=== PATIENT | female | born 1960 | race Caucasian/White ===

== ENCOUNTER 2019-02-13 11:36 | Inpatient (IN) ==
[2019-02-13 13:10] LABS: CREATININE 5.28 mg/dL (0.55-1.02)
[2019-02-13 13:12] LABS: BASOPHILS % (AUTO) 0.1 % (0.2-1.0); EOSINOPHILS # (AUTO) 0.5 x10^3/uL (0.0-0.2); EOSINOPHILS % (AUTO) 3.2 % (0.9-2.9); HEMATOCRIT 26.6 % (36.0-47.0); HEMOGLOBIN 8.3 g/dL (12.0-16.0); LYMPHOCYTES # (AUTO) 2.1 X10^3/uL (1.3-2.9); LYMPHOCYTES % (AUTO) 14.7 % (21.0-51.0); MEAN CORPUSCULAR HEMOGLOBIN 22.6 pg (27.0-34.0); MEAN CORPUSCULAR VOLUME 72.7 fL (80.0-100.0); MEAN PLATELET VOLUME 9.7 fL (7.4-11.0); MONOCYTES # (AUTO) 1.5 x10^3/uL (0.3-0.8); MONOCYTES % (AUTO) 10.2 % (0.0-13.0); NEUTROPHILS # (AUTO) 10.4 x10^3/uL (2.2-4.8); NEUTROPHILS % (AUTO) 71.8 % (42.0-75.0); PLATELET COUNT 273 X10^3/uL (150.0-450.0); RED BLOOD COUNT 3.66 X10^6/uL (3.5-5.4); RED CELL DISTRIBUTION WIDTH 19.6 % (11.6-16.5); WHITE BLOOD COUNT 14.5 X10^3/uL (3.6-10.0)
[2019-02-13 13:14] LABS: ALBUMIN 2.2 g/dL (3.4-5.0); COR CA(FOR HYPOALB) 9.4 mg/dL (8.5-10.1); TOTAL PROTEIN 7.6 g/dL (6.4-8.2)
[2019-02-13 13:19] LABS: CARBON DIOXIDE 14.2 mmol/L (21-32)
[2019-02-13 13:21] LABS: BAND NEUTROPHILS % 4 % (0-10)
[2019-02-13 13:22] LABS: ANISOCYTOSIS SLIGHT; HYPOCHROMASIA 1+; MICROCYTOSIS SLIGHT; PLATELET MORPHOLOGY COMMENT NORMAL (NORMAL)
[2019-02-13] MEDS ORDERED: NS 1000 ML 1,000 ML ONE ×2 (13:52→17:49)
[2019-02-13] MEDS ORDERED: NS 1000 ML 1,000 ML IV ONE (13:58)
--- NOTE | 2019-02-13 14:02 | DR.EXTPAIN ---
HPI Time seen Time Seen by Provider: 02/13/19 13:42 PCP Primary Care Physician: SURI CHRISTY Complaint/Symptoms Chief Complaint:: PTS STATES PT HAS LOW BP AND PTS MD WANTED HER TO HAVE SOME FLUIDS. PTS BP IS 84/49 Source History Provided: Patient Mode of arrival Mode of Arrival: Ambulatory Timing Onset of Chief Complaint: 02/13/19 PMH PMH Past Medical History: Yes Past Medical History: Asthma, COPD, Diabetes and Hypertension Past Surgical History: Yes Surgical History: Appendectomy and Cholecystectomy Family History History of Family Medical Conditions: Yes Family Medical History: Diabetes Mellitus, Coronary Artery Disease and Hypertension Social History Does patient currently use any type of tobacco product: No Have you used tobacco products in the last 12 months: No Type of Tobacco Use: None Does any household member use tobacco: No Alcohol Use: None Do you use any recreational Drugs:: No Lives With: Spouse Lives Where: Home infectious screening In the last 2 months have you had wt loss of >10#?: NO Have you had fever, night sweats or hemotysis?: No Have you traveled outside the country in the last 6 months?: No Isolation: Standard PE Vital Signs Vitals: Temperature 96.8 F Pulse Rate 99 Respiratory Rate 18 Blood Pressure [Left Arm] 132/79 Blood Pressure 85/52 O2 Sat by Pulse Oximetry 100 ROR Labs Reviewed Result Diagrams: 02/13/19 12:45 02/13/19 12:45 Laboratory: WBC 14.5 X10^3/uL (3.6-10.0) H 02/13/19 12:45 RBC 3.66 X10^6/uL (3.5-5.4) 02/13/19 12:45 Hgb 8.3 g/dL (12.0-16.0) L 02/13/19 12:45 Hct 26.6 % (36.0-47.0) L 02/13/19 12:45 MCV 72.7 fL (80.0-100.0) L 02/13/19 12:45 MCH 22.6 pg (27.0-34.0) L 02/13/19 12:45 MCHC 31.0 g/dL (33.0-35.0) L 02/13/19 12:45 RDW 19.6 % (11.6-16.5) H 02/13/19 12:45 Plt Count 273 X10^3/uL (150.0-450.0) 02/13/19 12:45 Plt Count Comment Adequate (ADEQUATE) 02/13/19 12:45 MPV 9.7 fL (7.4-11.0) 02/13/19 12:45 Neut % (Auto) 71.8 % (42.0-75.0) 02/13/19 12:45 Lymph % (Auto) 14.7 % (21.0-51.0) L 02/13/19 12:45 Amelia % (Auto) 10.2 % (0.0-13.0) 02/13/19 12:45 Eos % (Auto) 3.2 % (0.9-2.9) H 02/13/19 12:45 Baso % (Auto) 0.1 % (0.2-1.0) L 02/13/19 12:45 Neut # (Auto) 10.4 x10^3/uL (2.2-4.8) H 02/13/19 12:45 Lymph # (Auto) 2.1 X10^3/uL (1.3-2.9) 02/13/19 12:45 Amelia # (Auto) 1.5 x10^3/uL (0.3-0.8) H 02/13/19 12:45 Eos # (Auto) 0.5 x10^3/uL (0.0-0.2) H 02/13/19 12:45 Baso # (Auto) 0.0 X10^3/uL (0.0-0.1) 02/13/19 12:45 Absolute Nucleated RBC 0.1 /100WBC 02/13/19 12:45 Total Counted 100 02/13/19 12:45 Neutrophils % (Manual) 72 % (39-76) 02/13/19 12:45 Band Neutrophils % 4 % (0-10) 02/13/19 12:45 Lymphocytes % (Manual) 13 % (13-43) 02/13/19 12:45 Monocytes % (Manual) 7 % (4-9) 02/13/19 12:45 Eosinophils % (Manual) 3 % (0-6) 02/13/19 12:45 Atypical Lymphocytes 1 02/13/19 12:45 Plt Morphology Comment Normal (NORMAL) 02/13/19 12:45 RBC Morphology Abnormal (NORMAL) A 02/13/19 12:45 Hypochromasia 1+ A 02/13/19 12:45 Anisocytosis Slight A 02/13/19 12:45 Microcytosis Slight A 02/13/19 12:45 Sodium 132 mmol/L (136-145) L 02/13/19 12:45 Corrected Sodium 134 mmol/L (136-145) L 02/13/19 12:45 Potassium 4.9 mmol/L (3.5-5.1) 02/13/19 12:45 Chloride 96 mmol/L (98-107) L 02/13/19 12:45 Carbon Dioxide 14.2 mmol/L (21-32) L* 02/13/19 12:45 BUN 101 mg/dL (7-18) H 02/13/19 12:45 Creatinine 5.28 mg/dL (0.55-1.02) H 02/13/19 12:45 Est GFR (MDRD) Af Amer 11 (>60) L 02/13/19 12:45 Est GFR (MDRD) Non-Af 9 (>60) L 02/13/19 12:45 Glucose 163 mg/dL (65-99) H 02/13/19 12:45 Lactic Acid 0.8 mmol/L (0.4-2.0) 02/13/19 14:30 Calcium 8.0 mg/dL (8.5-10.1) L 02/13/19 12:45 Corrected Calcium 9.4 mg/dL (8.5-10.1) 02/13/19 12:45 Total Bilirubin 0.20 mg/dL (0.2-1.0) 02/13/19 12:45 AST 24 Units/L (15-37) 02/13/19 12:45 ALT 26 Units/L (12-78) 02/13/19 12:45 Alkaline Phosphatase 332 Units/L (46-116) H 02/13/19 12:45 Creatine Kinase 47 Units/L (26-192) 02/13/19 12:45 CK-MB (CK-2) 1.4 ng/mL (0-4.0) 02/13/19 12:45 CK/CKMB % Calc 3.0 % (<4) 02/13/19 12:45 Troponin I < 0.02 ng/mL (0-1.5) 02/13/19 12:45 Total Protein 7.6 g/dL (6.4-8.2) 02/13/19 12:45 Albumin 2.2 g/dL (3.4-5.0) L 02/13/19 12:45 Globulin 5.4 g/dL (2.5-4.5) H 02/13/19 12:45 Albumin/Globulin Ratio 0.4 Ratio (1.1-2.1) L 02/13/19 12:45 Opioid Opioid Risk Tool Age (Ken box if 16-45): No History of Preadolescent Sexual Abuse: No Total: 0 Total Score Risk Category: Low Risk Copyright: [employer] predicting aberrant behaviors
[2019-02-13] MEDS ORDERED: ZOSYN VIAL 3.375 GRAMS 3.375 G in NS 100 ML IV + SPIKE MINIBAG* 100 ML IV ONE (14:46)
[2019-02-13] MEDS ORDERED: ZOSYN VIAL 3.375 GRAMS IV ONE (14:55)
[2019-02-13] MEDS ORDERED: NS 100 ML IV + SPIKE MINIBAG* 100 ML IV ONE (14:56)
--- NOTE | 2019-02-13 15:09 | CT ---
CT abdomen and pelvis without contrast Indication: Abdominal pain Technique: Helical images through the abdomen and pelvis without contrast. Coronal and sagittal reformats provided. Comparison: None available Findings: Limited images through the lower chest shows no acute abnormality. Few coronary artery calcifications are noted. Review of bone windows shows no destructive osseous lesion. Abdomen: The gallbladder is absent. The liver, spleen, pancreas, adrenal glands, stomach and small bowel show no acute abnormality. Aortic calcifications noted. Kidneys show no hydroureteronephrosis or obstructing stone. The left upper pole contour abnormality and subtle hypodensity could reflect renal lesion. Minimal perinephric stranding noted. Colonic diverticulosis is noted with moderate stool in the right colon. Appendix is absent. Pelvis: Urinary bladder and rectum are normal. Uterus and adnexal regions show no acute abnormality. Small umbilical hernia noted. Impression: 1. No acute abnormality to explain the patient's pain, within the limits of a noncontrast study 2. Vascular plaque, spine DJD, noninflamed colonic diverticula and other findings as above. Moderate constipation suggested. Recommend follow-up colonoscopy to exclude underlying lesion after resolution of acute symptoms, if not already recently performed 3. Vague left upper pole renal hypodensity and irregular contour is nonspecific, and evaluation is limited on this non-contrast study. Nevertheless to exclude underlying lesion, nonemergent outpatient ultrasound follow-up is recommended to exclude renal neoplasia. Reported By:
[2019-02-13 15:22] LABS: CREATINE KINASE 47 Units/L (26-192); CREATINE KINASE MB 1.4 ng/mL (0-4.0); TROPONIN I < 0.02 ng/mL (0-1.5)
[2019-02-13] MEDS: NS 1000 ML 1,000 ML IV SCH (17:50)
[2019-02-13] MEDS ORDERED: PROVENTIL NEB TX 0.083% 2.5MG/ 3ML NEB PRN (18:36)
[2019-02-13 18:47] VITALS: BMI 30.9
[2019-02-13] MEDS ORDERED: NS 250 ML IV 250 ML IV ONE (19:29)
[2019-02-13 19:47] LABS: BILIRUBIN,URINE NEGATIVE (NEGATIVE); BLOOD/HEMOGLOBIN,URINE 3+ (NEGATIVE); GLUCOSE, URINE NEGATIVE (NEGATIVE); KETONES,URINE NEGATIVE (NEGATIVE); LEUKOCYTE ESTERASE ,URINE 1+ (NEGATIVE); NITRITES,URINE NEGATIVE (NEGATIVE); PROTEIN,URINE 2+ (NEGATIVE); UROBILINOGEN,URINE NORMAL (NORMAL)
[2019-02-13 19:55] LABS: APPEARANCE,URINE CLEAR (CLEAR); COLOR,URINE YELLOW (YELLOW); SQUAMOUS EPITHELIAL CELL,UR FEW /HPF (NEGATIVE)
[2019-02-13 19:56] LABS: AMORPHOUS SEDIMENT,UR 1+ /HPF (NEGATIVE); BACTERIA,URINE NEGATIVE /HPF (NEGATIVE)
[2019-02-13] MEDS ORDERED: COLACE CAP 100 MG PO PRN (20:05)
[2019-02-13] MEDS: ZOSYN VIAL 3.375 GRAMS 3.375 G in NS 100 ML IV + SPIKE MINIBAG* 100 ML IV SCH (20:07)
[2019-02-13] MEDS: BROVANA IN SCH (20:48)
[2019-02-13] MEDS ORDERED: ZOFRAN INJ 4 MG VIAL IVP PRN (21:52)
[2019-02-13] MEDS ORDERED: MILK OF MAGNESIA PO PRN (21:52)
[2019-02-13] MEDS ORDERED: MIRALAX POWDER (1 DOSE 17 G) PO PRN (21:58)
[2019-02-13 23:18] LABS: CKMB % 3.1 % (<4); CREATINE KINASE 42 Units/L (26-192); CREATINE KINASE MB 1.3 ng/mL (0-4.0); TROPONIN I < 0.02 ng/mL (0-1.5)
[2019-02-14 01:01] LABS: BILIRUBIN,URINE NEGATIVE (NEGATIVE); BLOOD/HEMOGLOBIN,URINE 4+ (NEGATIVE); GLUCOSE, URINE NEGATIVE (NEGATIVE); KETONES,URINE NEGATIVE (NEGATIVE); LEUKOCYTE ESTERASE ,URINE 1+ (NEGATIVE); NITRITES,URINE NEGATIVE (NEGATIVE); PROTEIN,URINE 2+ (NEGATIVE); UROBILINOGEN,URINE NORMAL (NORMAL)
[2019-02-14 01:10] LABS: AMORPHOUS SEDIMENT,UR 2+ /HPF (NEGATIVE); APPEARANCE,URINE CLEAR (CLEAR); BACTERIA,URINE NEGATIVE /HPF (NEGATIVE); COLOR,URINE YELLOW (YELLOW); SQUAMOUS EPITHELIAL CELL,UR MODERATE /HPF (NEGATIVE)
[2019-02-14] MEDS: NS 1000 ML 1,000 ML IV SCH ×3 (01:29→19:25)
[2019-02-14 05:25] LABS: BASOPHILS # (AUTO) 0.1 X10^3/uL (0.0-0.1); BASOPHILS % (AUTO) 0.4 % (0.2-1.0); EOSINOPHILS # (AUTO) 0.3 x10^3/uL (0.0-0.2); EOSINOPHILS % (AUTO) 2.4 % (0.9-2.9); HEMATOCRIT 24.5 % (36.0-47.0); HEMOGLOBIN 7.4 g/dL (12.0-16.0); LYMPHOCYTES # (AUTO) 0.6 X10^3/uL (1.3-2.9); LYMPHOCYTES % (AUTO) 4.3 % (21.0-51.0); MEAN CORPUSCULAR HEMOGLOBIN 22.3 pg (27.0-34.0); MEAN CORPUSCULAR HGB CONC 30.2 g/dL (33.0-35.0); MEAN CORPUSCULAR VOLUME 73.7 fL (80.0-100.0); MEAN PLATELET VOLUME 9.1 fL (7.4-11.0); MONOCYTES % (AUTO) 7.5 % (0.0-13.0); NEUTROPHILS # (AUTO) 11.8 x10^3/uL (2.2-4.8); NEUTROPHILS % (AUTO) 85.4 % (42.0-75.0); PLATELET COUNT 247 X10^3/uL (150.0-450.0); RED BLOOD COUNT 3.32 X10^6/uL (3.5-5.4); RED CELL DISTRIBUTION WIDTH 19.2 % (11.6-16.5); WHITE BLOOD COUNT 13.9 X10^3/uL (3.6-10.0)
[2019-02-14 05:43] LABS: ALANINE AMINOTRANSFERASE 21 Units/L (12-78); ALBUMIN 1.9 g/dL (3.4-5.0); ALKALINE PHOSPHATASE 298 Units/L (46-116); ASPARTATE AMINO TRANSFERASE 21 Units/L (15-37); BLOOD UREA NITROGEN 101 mg/dL (7-18); CALCIUM 7.3 mg/dL (8.5-10.1); CHLORIDE 103 mmol/L (98-107); CKMB % 3.2 % (<4); COR NA(FOR HYPERGLY) 137 mmol/L (136-145); CREATINE KINASE 44 Units/L (26-192); CREATINE KINASE MB 1.4 ng/mL (0-4.0); CREATININE 4.98 mg/dL (0.55-1.02); HYPOCHROMASIA SLIGHT; PLATELET MORPHOLOGY COMMENT NORMAL (NORMAL); SODIUM 135 mmol/L (136-145); TOTAL PROTEIN 6.5 g/dL (6.4-8.2); TROPONIN I < 0.02 ng/mL (0-1.5); eGFR NON BLACK RACES 9 (>60)
[2019-02-14 05:53] LABS: CARBON DIOXIDE 8.2 mmol/L (21-32)
[2019-02-14] MEDS: BROVANA IN SCH ×2 (08:59→20:05)
[2019-02-14] MEDS: ZOSYN VIAL 3.375 GRAMS 3.375 G in NS 100 ML IV + SPIKE MINIBAG* 100 ML IV SCH ×2 (09:22→21:17)
--- NOTE | 2019-02-14 11:23 | RAD ---
HISTORY: Shortness of breath, diminished lung base sounds. Prior history of hypertension, diabetes, COPD and asthma. Prior surgical history of appendix, gallbladder. Study: Single-view chest, done portably. Comparison: No priors Findings: There are postsurgical changes present involving the right shoulder. Rotator cuff tendon repair anchors are present. The trachea is midline. Examination is slightly expiratory. There is cardiomegaly with pulmonary vascular congestion. No CHF, infiltrate, pleural fluid or pneumothorax is seen. Osseous structures are intact. There is multilevel thoracic spondylosis. IMPRESSION: Slightly expiratory exam with Cardiomegaly and mild pulmonary vascular congestion. No CHF, infiltrate or pleural fluid is seen. Reported By:
[2019-02-14] MEDS: HumuLIN R SUBCUT PRN (11:50)
[2019-02-14] MEDS ORDERED: NS 1000 ML 1,000 ML with SODIUM BICARBONATE 8.4% INJ ADULT 50 ML IV SCH ×2 (14:00)
[2019-02-14 14:03] LABS: ABG BASE EXCESS -19.6 mmol/L (-2.0-2.0)
[2019-02-14] MEDS: NORCO 5/325 MG TAB PO PRN ×2 (14:04→21:26)
[2019-02-14] MEDS: KAYEXALATE SUSP PO SCH ×2 (14:04→21:16)
[2019-02-14 14:05] LABS: ABG ALLEN TEST POS; ABG HCO3 6.9 mmol/L (22-26)
--- NOTE | 2019-02-14 16:32 | US ---
HISTORY: New onset of renal failure. Prior history of hypertension, diabetes, COPD and asthma. Study: Bilateral renal ultrasound Comparison: CT scan of the abdomen and pelvis done 02/13/2019. Technique: Grayscale, duplex and color Doppler ultrasound evaluation of the kidneys is provided. Findings: A Richard catheter is present in the urinary bladder is decompressed and not evaluated. Both kidneys display normal corticomedullary echo differentiation, color and duplex Doppler flow. No evidence of solid renal mass, stone or hydronephrosis is seen. There is no evidence of perinephric fluid. Right kidney measures 6.36 x 7.22 x 10.7 cm. Cortical thickness is 2.34 cm. Left kidney measures 5.13 x 5.78 x 9.39 cm. Cortical thickness is 1.62 cm. There is a very subtle cortical cyst present on the left in the midpole region. This measures about 1.34 cm in diameter. IMPRESSION: Normal corticomedullary echo differentiation and Doppler flow to both kidneys. No evidence of solid renal mass, stone or hydronephrosis. Very subtle 1.34 cm simple cyst in the midpole of the left kidney. Urinary bladder not evaluated as a Richard catheter is present and the urinary bladder is decompressed. Reported By:
[2019-02-14 17:51] LABS: CALCIUM 7.7 mg/dL (8.5-10.1); CREATININE 4.78 mg/dL (0.55-1.02)
[2019-02-14 17:53] LABS: CARBON DIOXIDE 11.8 mmol/L (21-32)
[2019-02-14] MEDS ORDERED: NS 1000 ML 1,000 ML IV ONE (18:02)
--- NOTE | 2019-02-14 18:14 | DR.H&P ---
H&P - History & Physical for Day of: H&P Date: 02/13/19 - Chief Complaint Chief Complaint: weakness, low bp, uti - History of Present Illness History of Present Illness: PT IS 58 WF ER ADMISSION AFTER PRESENTING WITH CO RECENT UTI AND CO LOW BP AND WEAKNESS. PT SPOUSE STATES HER MD WANTED HER TO COME TO ER TO GET FLUIDS. PT HAS PMH OF DM, DENIES ANY HX OF RENAL DISEASE OR CAD. PT WAS HYPOTENSIVE IN ER, BUN 101, CREAT 5.25, WBC 14.5. PT WAS ADMITTED FROM ER WITH DC UROSEPSIS. - Past Medical History Past Medical History: Hypertension, Diabetes, COPD, Asthma - Past Surgical History Surgical History: Appendectomy, Cholecystectomy, Ortho Surgery - Family History Family Medical History: Diabetes Mellitus, Coronary Artery Disease, Hypertension - Social History Does patient currently use any type of tobacco product: No Have you used tobacco products in the last 12 months: No Type of Tobacco Use: None Does any household member use tobacco: No Alcohol Use: None Drug Use: None - Medications Home Medications: No Known Drug Allergies Allergy (Verified 02/10/19 08:19) CONTINUE taking the following medications gemfibrozil 600 mg PO DAILY 02/14/19 [History] glimepiride 4 mg PO BID 02/14/19 [History] hydrocodone-acetaminophen 1 tab PO DAILY PRN 02/14/19 [History] ibuprofen 800 mg PO BID 02/14/19 [History] metformin 1,000 mg PO BID 02/14/19 [History] metoprolol tartrate 25 mg PO DAILY 02/14/19 [History] simvastatin 40 mg PO DAILY 02/14/19 [History] valsartan 80 mg PO DAILY 02/14/19 [History] - Review of Systems Constitutional: Weakness Eyes: No Symptoms Reported Respiratory: No Symptoms Reported Cardiovascular: Edema (MILD LOWER EXTREMITY EDEMA) Gastrointestinal: No Symptoms Reported Genitourinary: No Symptoms Reported Musculoskeletal: Back Pain Skin: No Symptoms Reported Neurological: No Symptoms Reported - Physical Exam Vital Signs: Temperature 99.2 F Pulse Rate 112 Respiratory Rate 29 Blood Pressure [Left Arm] 85/52 Blood Pressure 116/56 O2 Sat by Pulse Oximetry 100 Oriented: Normal Eyes: Normal Ear: Normal Nose: Normal Throat: Normal Respiratory: RLL Diminished, LLL Diminished Cardiovascular: Normal : Normal Auscultation: Bowel Sounds: Normal Palpation: Normal Tenderness: Normal Skin: Normal Musculoskeletal: Back:Thoracic, Back:Lumbar Psychiatric: Normal Mood Description: Calm Speech Pattern: Clear, Appropriate - Assessment/Plan (1) Acute renal failure Status: Acute Plan: ADMIT, IV HYDRATION, LITER NS BOLUS GIVEN IN ER. MILLER CATH ON ADMISSION, REPEAT UA AND UC. BLOOD CULTURES ON ADMISSION, LACTIC ACID. IV ATBX THERAPY, STRICT I & OS. VERIFY HOME MEDICATION, BS CONTROL, EKG MONITORING (2) Hypotension Status: Acute (3) Diabetes 1.5, managed as type 2 Status: Acute (4) Sepsis associated hypotension Status: Acute (5) UTI (urinary tract infection) Qualifiers: Urinary tract infection type: site unspecified Hematuria presence: with hematuria Qualified Code(s): N39.0 - Urinary tract infection, site not specified; R31.9 - Hematuria, unspecified Status: Acute - Allergies Allergies/Adverse Reactions: Allergies Allergy/AdvReac Type Severity Reaction Status Date / Time No Known Drug Allergies Allergy Verified 02/10/19 08:19
--- NOTE | 2019-02-14 18:20 | PCM.PROG ---
Progress Note - Progress Note for Day of Date of Exam: 02/14/19 - Subjective Subjective: PT IS 58 WF ER ADMISSION DURING THE NIGHT LAST NIGHT WITH DX OF UROSEPSIS, ACUTE RENAL FAILURE, DEHYDRATION, UTI. PT HAS BEEN ON IV HYDRATION WITH IMPROVED BP THIS AM ~100/60, NO TACHYPNEA OR TACHYCARDIA. PT DENIES ANY CARDIAC HISTORY OR RENAL DISEASE. PT HAD CT SCAN OF ABD/PELVIS IN ER WITHOUT CONTRAST. RENAL US ORDERED TODAY DUE TO RENAL INSUFFICEINCY. CXR, ABG, REPEAT BMP. AND REPEAT LACTIC ACID AND SERUM ACETONE. PT DID HAVE ~300CC LIGHT YELLOW URINE OUTPUT IN MILLER BAG. HOURLY URINE OUTPT ORDERED. WILL REPEAT AM CXR. - Past Medical Family Social History Past Med/Fam/Surg Hx: No changes since H&P Allergies: Allergies No Known Drug Allergies Allergy (Verified 02/10/19 08:19) - Review of Systems ROS: No change since H&P - Vital Signs and I&O's Vital Signs: Temperature 99.2 F Pulse Rate 112 Respiratory Rate 29 Blood Pressure [Left Arm] 85/52 Blood Pressure 116/56 O2 Sat by Pulse Oximetry 100 Intake and Output: Intake & Output 02/12/19 02/13/19 02/14/19 02/15/19 11:59 11:59 11:59 11:59 Intake Total 1900 / 1900 Output Total 450 / 450 Balance 1450 / 1450 - Physical Exam Oriented: Normal Eyes: Normal Ear: Normal Nose: Normal Throat: Normal Respiratory: Diminished Cardiovascular: Normal : Normal Auscultation: Bowel Sounds: Normal Tenderness: Normal Skin: Normal Musculoskeletal: Back:Thoracic, Back:Lumbar Psychiatric: Normal Mood Description: Calm Speech Pattern: Clear, Appropriate - Laboratory and Diagnostics Result Diagrams: 02/14/19 04:52 02/14/19 17:35 Labs: Laboratory WBC 13.9 X10^3/uL (3.6-10.0) H 02/14/19 04:52 RBC 3.32 X10^6/uL (3.5-5.4) L 02/14/19 04:52 Hgb 7.4 g/dL (12.0-16.0) L 02/14/19 04:52 Hct 24.5 % (36.0-47.0) L 02/14/19 04:52 MCV 73.7 fL (80.0-100.0) L 02/14/19 04:52 MCH 22.3 pg (27.0-34.0) L 02/14/19 04:52 MCHC 30.2 g/dL (33.0-35.0) L 02/14/19 04:52 RDW 19.2 % (11.6-16.5) H 02/14/19 04:52 Plt Count 247 X10^3/uL (150.0-450.0) 02/14/19 04:52 Plt Count Comment Adequate (ADEQUATE) 02/14/19 04:52 MPV 9.1 fL (7.4-11.0) 02/14/19 04:52 Neut % (Auto) 85.4 % (42.0-75.0) H 02/14/19 04:52 Lymph % (Auto) 4.3 % (21.0-51.0) L 02/14/19 04:52 Green % (Auto) 7.5 % (0.0-13.0) 02/14/19 04:52 Eos % (Auto) 2.4 % (0.9-2.9) 02/14/19 04:52 Baso % (Auto) 0.4 % (0.2-1.0) 02/14/19 04:52 Neut # (Auto) 11.8 x10^3/uL (2.2-4.8) H 02/14/19 04:52 Lymph # (Auto) 0.6 X10^3/uL (1.3-2.9) L 02/14/19 04:52 Green # (Auto) 1.0 x10^3/uL (0.3-0.8) H 02/14/19 04:52 Eos # (Auto) 0.3 x10^3/uL (0.0-0.2) H 02/14/19 04:52 Baso # (Auto) 0.1 X10^3/uL (0.0-0.1) 02/14/19 04:52 Absolute Nucleated RBC 0.1 /100WBC 02/14/19 04:52 Total Counted 100 02/13/19 12:45 Neutrophils % (Manual) 72 % (39-76) 02/13/19 12:45 Band Neutrophils % 4 % (0-10) 02/13/19 12:45 Lymphocytes % (Manual) 13 % (13-43) 02/13/19 12:45 Monocytes % (Manual) 7 % (4-9) 02/13/19 12:45 Eosinophils % (Manual) 3 % (0-6) 02/13/19 12:45 Atypical Lymphocytes 1 02/13/19 12:45 Plt Morphology Comment Normal (NORMAL) 02/14/19 04:52 RBC Morphology Abnormal (NORMAL) A 02/14/19 04:52 Hypochromasia Slight A 02/14/19 04:52 Anisocytosis Slight A 02/13/19 12:45 Microcytosis Slight A 02/13/19 12:45 Sample Site Rr 02/14/19 13:57 ABG pH 7.170 (7.35-7.45) L* 02/14/19 13:57 ABG pCO2 19.0 mmHg (35.0-45.0) L* 02/14/19 13:57 ABG pO2 96.0 mmHg (80.0-100.0) 02/14/19 13:57 ABG HCO3 6.9 mmol/L (22-26) L* 02/14/19 13:57 ABG O2 Saturation 95.0 % (90-100) 02/14/19 13:57 ABG Base Excess -19.6 mmol/L (-2.0-2.0) L 02/14/19 13:57 Armando Test Pos 02/14/19 13:57 A-a Gradient 30.0 mmHg 02/14/19 13:57 FiO2 21.0 02/14/19 13:57 Blood Gas Comments Pt juan c well. cdn 02/14/19 13:57 Sodium 138 mmol/L (136-145) 02/14/19 17:35 Corrected Sodium 139 mmol/L (136-145) 02/14/19 17:35 Potassium 4.7 mmol/L (3.5-5.1) 02/14/19 17:35 Chloride 106 mmol/L (98-107) 02/14/19 17:35 Carbon Dioxide 11.8 mmol/L (21-32) L* 02/14/19 17:35 BUN 100 mg/dL (7-18) H 02/14/19 17:35 Creatinine 4.78 mg/dL (0.55-1.02) H 02/14/19 17:35 Est GFR (MDRD) Af Amer 12 (>60) L 02/14/19 17:35 Est GFR (MDRD) Non-Af 10 (>60) L 02/14/19 17:35 Glucose 145 mg/dL (65-99) H 02/14/19 17:35 POC Glucose (mg/dL) 135 mg/dL (65-99) H 02/14/19 16:27 Hemoglobin A1c 10.3 % 02/14/19 04:52 Lactic Acid 0.8 mmol/L (0.4-2.0) 02/13/19 14:30 Calcium 7.7 mg/dL (8.5-10.1) L 02/14/19 17:35 Corrected Calcium 9.0 mg/dL (8.5-10.1) 02/14/19 04:52 Magnesium 2.0 mg/dL (1.7-2.9) 02/14/19 04:52 Iron 24 ug/dL (50-175) L 02/14/19 13:30 Transferrin 219 mg/dL (202-364) 02/14/19 13:30 Ferritin 20 ng/mL (8-252) 02/14/19 13:30 Total Bilirubin 0.20 mg/dL (0.2-1.0) 02/14/19 04:52 AST 21 Units/L (15-37) 02/14/19 04:52 ALT 21 Units/L (12-78) 02/14/19 04:52 Alkaline Phosphatase 298 Units/L (46-116) H 02/14/19 04:52 Creatine Kinase 44 Units/L (26-192) 02/14/19 04:52 CK-MB (CK-2) 1.4 ng/mL (0-4.0) 02/14/19 04:52 CK/CKMB % Calc 3.2 % (<4) 02/14/19 04:52 Troponin I < 0.02 ng/mL (0-1.5) 02/14/19 04:52 Total Protein 6.5 g/dL (6.4-8.2) 02/14/19 04:52 Albumin 1.9 g/dL (3.4-5.0) L 02/14/19 04:52 Globulin 4.6 g/dL (2.5-4.5) H 02/14/19 04:52 Albumin/Globulin Ratio 0.4 Ratio (1.1-2.1) L 02/14/19 04:52 Vitamin B12 775 pg/mL (193-986) 02/14/19 13:30 Folate 19.1 ng/mL (>8.6) 02/14/19 13:30 Specimen Type Catherized urine 02/14/19 00:40 Urine Color Yellow (YELLOW) 02/14/19 00:40 Urine Appearance Clear (CLEAR) 02/14/19 00:40 Urine pH 5.0 (5.0 - 8.0) 02/14/19 00:40 Ur Specific [place] 1.015 (1.000-1.030) 02/14/19 00:40 Urine Protein 2+ (NEGATIVE) 02/14/19 00:40 Urine Glucose (UA) Negative (NEGATIVE) 02/14/19 00:40 Urine Ketones Negative (NEGATIVE) 02/14/19 00:40 Urine Occult Blood 4+ (NEGATIVE) 02/14/19 00:40 Urine Nitrite Negative (NEGATIVE) 02/14/19 00:40 Urine Bilirubin Negative (NEGATIVE) 02/14/19 00:40 Urine Urobilinogen Normal (NORMAL) 02/14/19 00:40 Ur Leukocyte Esterase 1+ (NEGATIVE) 02/14/19 00:40 Urine RBC 5-10 /HPF (0-3) A 02/14/19 00:40 Urine WBC 3-5 /HPF (0-5) 02/14/19 00:40 Ur Squamous Epith Cells Moderate /HPF (NEGATIVE) 02/14/19 00:40 Amorphous Sediment 2+ /HPF (NEGATIVE) 02/14/19 00:40 Urine Bacteria Negative /HPF (NEGATIVE) 02/14/19 00:40 Ur Culture Indicated? No/not indicated 02/14/19 00:40 - Plan (1) Acute renal failure Status: Acute Plan: IV HYDRATION, LITER NS BOLUS GIVEN IN ER. MILLER CATH ON ADMISSION, REPEAT UA AND UC. BLOOD CULTURES ON ADMISSION, LACTIC ACID. IV ATBX THERAPY, STRICT I & OS. VERIFY HOME MEDICATION, BS CONTROL, EKG MONITORING (2) Hypotension Status: Acute (3) Diabetes 1.5, managed as type 2 Status: Acute (4) Sepsis associated hypotension Status: Acute (5) UTI (urinary tract infection) Status: Acute Qualifiers: Urinary tract infection type: site unspecified Hematuria presence: with hematuria Qualified Code(s): N39.0 - Urinary tract infection, site not specified; R31.9 - Hematuria, unspecified (6) Acidosis, metabolic Status: Acute Plan: IV HYDRATION, SERIAL BMP. REPEAT LACTIC ACID, ABG. SERUM ACETONE, BS CONTROL, TREATMENT OF ACUTE RENAL FAILURE
[2019-02-14 18:37] LABS: LACTIC ACID 0.7 mmol/L (0.4-2.0)
[2019-02-14 18:51] LABS: SERUM ACETONE NEGATIVE (NEGATIVE)
[2019-02-14] MEDS: SNACK - Diabetic Appropriate PO SCH (20:43)
[2019-02-14 21:53] LABS: CALCIUM 7.6 mg/dL (8.5-10.1); CREATININE 4.52 mg/dL (0.55-1.02)
[2019-02-14 21:56] LABS: CARBON DIOXIDE 9.3 mmol/L (21-32)
[2019-02-15 02:00] LABS: CALCIUM 7.5 mg/dL (8.5-10.1); CREATININE 4.32 mg/dL (0.55-1.02)
[2019-02-15 02:03] LABS: CARBON DIOXIDE 9.4 mmol/L (21-32)
[2019-02-15] MEDS: NS 1000 ML 1,000 ML IV SCH ×3 (05:38→22:51)
[2019-02-15 05:54] LABS: BASOPHILS % (AUTO) 0.3 % (0.2-1.0); EOSINOPHILS # (AUTO) 0.5 x10^3/uL (0.0-0.2); EOSINOPHILS % (AUTO) 3.1 % (0.9-2.9); HEMATOCRIT 25.7 % (36.0-47.0); HEMOGLOBIN 7.9 g/dL (12.0-16.0); LYMPHOCYTES # (AUTO) 1.2 X10^3/uL (1.3-2.9); LYMPHOCYTES % (AUTO) 8.4 % (21.0-51.0); MEAN CORPUSCULAR HEMOGLOBIN 22.6 pg (27.0-34.0); MEAN CORPUSCULAR HGB CONC 30.8 g/dL (33.0-35.0); MEAN CORPUSCULAR VOLUME 73.2 fL (80.0-100.0); MEAN PLATELET VOLUME 8.8 fL (7.4-11.0); MONOCYTES # (AUTO) 1.1 x10^3/uL (0.3-0.8); MONOCYTES % (AUTO) 7.2 % (0.0-13.0); PLATELET COUNT 323 X10^3/uL (150.0-450.0); RED CELL DISTRIBUTION WIDTH 19.3 % (11.6-16.5); WHITE BLOOD COUNT 14.8 X10^3/uL (3.6-10.0)
[2019-02-15 06:00] LABS: CALCIUM 7.9 mg/dL (8.5-10.1); COR CA(FOR HYPOALB) 9.5 mg/dL (8.5-10.1); CREATININE 4.22 mg/dL (0.55-1.02)
[2019-02-15 06:02] LABS: CARBON DIOXIDE 9.9 mmol/L (21-32)
[2019-02-15 06:08] LABS: HYPOCHROMASIA 1+; PLATELET MORPHOLOGY COMMENT NORMAL (NORMAL)
[2019-02-15 08:56] LABS: ABG BASE EXCESS -18.6 mmol/L (-2.0-2.0)
[2019-02-15 08:58] LABS: ABG ALLEN TEST POS; ABG HCO3 7.6 mmol/L (22-26)
[2019-02-15] MEDS: ZOSYN VIAL 3.375 GRAMS 3.375 G in NS 100 ML IV + SPIKE MINIBAG* 100 ML IV SCH ×2 (09:01→21:35)
[2019-02-15] MEDS: BROVANA IN SCH ×2 (10:03→20:37)
[2019-02-15 10:24] LABS: CALCIUM 7.9 mg/dL (8.5-10.1); CREATININE 4.11 mg/dL (0.55-1.02)
--- NOTE | 2019-02-15 10:56 | RAD ---
HISTORY: Shortness of breath Study: Chest AP portable Comparison: 02/14/2019 Findings: The heart is mildly enlarged. No congestive heart failure is noted. No acute alveolar infiltrates or pleural effusions are identified. Mild hypo inflation is present. The bony thorax is unremarkable. IMPRESSION: Mild cardiomegaly without congestive heart failure Lungs mildly hypo inflated but clear Reported By:
[2019-02-15] MEDS: NORCO 5/325 MG TAB PO PRN ×2 (12:39→19:40)
--- NOTE | 2019-02-15 12:58 | PCM.PROG ---
Progress Note - Progress Note for Day of Date of Exam: 02/15/19 - Subjective Subjective: PT IS 58 WF ER ADMISSION DURING THE NIGHT LAST NIGHT WITH DX OF UROSEPSIS, ACUTE RENAL FAILURE, DEHYDRATION, UTI. PT HAS BEEN ON IV HYDRATION WITH IMPROVED BP THIS AM 117/59, NO TACHYPNEA OR TACHYCARDIA THIS MORNING. PT DENIES ANY CARDIAC HISTORY OR RENAL DISEASE. PT REPORTS SHE HAD NOT HAD LABS IN YEARS.RENAL US WITH NORMAL BILATERAL RENAL PERFUSION. CXR, ABG, REPEAT BMP. AND REPEAT LACTIC ACID. CO2 UP TO 11 ON CMP. PT DID HAVE LIGHT YELLOW URINE OUTPUT IN MILLER BAG, OUTPUT THIS AM 3620CC. PT HAS HAD CO DYSPHAGIA, CHOKING WHILE EATING OR FOOD GETTING STUCK IN HER THROAT. DR GONZALEZ CONSULTED WITH PLANS FOR EGD THIS AM, PT IS NPO. - Past Medical Family Social History Past Med/Fam/Surg Hx: No changes since H&P Allergies: Allergies No Known Drug Allergies Allergy (Verified 02/10/19 08:19) - Review of Systems ROS: No change since H&P - Vital Signs and I&O's Vital Signs: Temperature 98.8 F Pulse Rate 109 Respiratory Rate 22 Blood Pressure [Left Arm] 85/52 Blood Pressure 114/58 O2 Sat by Pulse Oximetry 100 Intake and Output: Intake & Output 02/13/19 02/14/19 02/15/19 02/16/19 11:59 11:59 11:59 11:59 Intake Total 1900 / 1900 4819 / 4819 Output Total 450 / 450 3620 / 3620 Balance 1450 / 1450 1199 / 1199 - Physical Exam Oriented: Normal Eyes: Normal Ear: Normal Nose: Normal Throat: Normal Respiratory: Diminished Cardiovascular: Normal : Normal Auscultation: Bowel Sounds: Normal Tenderness: Normal Skin: Normal Musculoskeletal: Back:Thoracic, Back:Lumbar Psychiatric: Normal Mood Description: Calm Speech Pattern: Clear, Appropriate - Laboratory and Diagnostics Result Diagrams: 02/15/19 05:35 02/15/19 10:07 Labs: 02/13/19 14:30 Blood Blood Culture - Preliminary 02/13/19 14:20 Blood Blood Culture - Preliminary 02/14/19 09:40 Urine,[place] Urine Culture - Preliminary Laboratory WBC 14.8 X10^3/uL (3.6-10.0) H 02/15/19 05:35 RBC 3.50 X10^6/uL (3.5-5.4) 02/15/19 05:35 Hgb 7.9 g/dL (12.0-16.0) L 02/15/19 05:35 Hct 25.7 % (36.0-47.0) L 02/15/19 05:35 MCV 73.2 fL (80.0-100.0) L 02/15/19 05:35 MCH 22.6 pg (27.0-34.0) L 02/15/19 05:35 MCHC 30.8 g/dL (33.0-35.0) L 02/15/19 05:35 RDW 19.3 % (11.6-16.5) H 02/15/19 05:35 Plt Count 323 X10^3/uL (150.0-450.0) 02/15/19 05:35 Plt Count Comment Adequate (ADEQUATE) 02/15/19 05:35 MPV 8.8 fL (7.4-11.0) 02/15/19 05:35 Neut % (Auto) 81.0 % (42.0-75.0) H 02/15/19 05:35 Lymph % (Auto) 8.4 % (21.0-51.0) L 02/15/19 05:35 [place] % (Auto) 7.2 % (0.0-13.0) 02/15/19 05:35 Eos % (Auto) 3.1 % (0.9-2.9) H 02/15/19 05:35 Baso % (Auto) 0.3 % (0.2-1.0) 02/15/19 05:35 Neut # (Auto) 12.0 x10^3/uL (2.2-4.8) H 02/15/19 05:35 Lymph # (Auto) 1.2 X10^3/uL (1.3-2.9) L 02/15/19 05:35 [place] # (Auto) 1.1 x10^3/uL (0.3-0.8) H 02/15/19 05:35 Eos # (Auto) 0.5 x10^3/uL (0.0-0.2) H 02/15/19 05:35 Baso # (Auto) 0.0 X10^3/uL (0.0-0.1) 02/15/19 05:35 Absolute Nucleated RBC 0.0 /100WBC 02/15/19 05:35 Total Counted 100 02/13/19 12:45 Neutrophils % (Manual) 72 % (39-76) 02/13/19 12:45 Band Neutrophils % 4 % (0-10) 02/13/19 12:45 Lymphocytes % (Manual) 13 % (13-43) 02/13/19 12:45 Monocytes % (Manual) 7 % (4-9) 02/13/19 12:45 Eosinophils % (Manual) 3 % (0-6) 02/13/19 12:45 Atypical Lymphocytes 1 02/13/19 12:45 Plt Morphology Comment Normal (NORMAL) 02/15/19 05:35 RBC Morphology Abnormal (NORMAL) A 02/15/19 05:35 Hypochromasia 1+ A 02/15/19 05:35 Anisocytosis Slight A 02/13/19 12:45 Microcytosis Slight A 02/13/19 12:45 Sample Site Rra 02/15/19 08:54 ABG pH 7.190 (7.35-7.45) L* 02/15/19 08:54 ABG pCO2 20.0 mmHg (35.0-45.0) L 02/15/19 08:54 ABG pO2 98.0 mmHg (80.0-100.0) 02/15/19 08:54 ABG HCO3 7.6 mmol/L (22-26) L* 02/15/19 08:54 ABG O2 Saturation 96.0 % (90-100) 02/15/19 08:54 ABG Base Excess -18.6 mmol/L (-2.0-2.0) L 02/15/19 08:54 Armando Test Pos 02/15/19 08:54 A-a Gradient 27.0 mmHg 02/15/19 08:54 FiO2 21.0 02/15/19 08:54 Blood Gas Comments Pt toll well eb 02/15/19 08:54 Sodium 142 mmol/L (136-145) 02/15/19 10:07 Corrected Sodium 142 mmol/L (136-145) 02/15/19 10:07 Potassium 4.3 mmol/L (3.5-5.1) 02/15/19 10:07 Chloride 112 mmol/L (98-107) H 02/15/19 10:07 Carbon Dioxide 11.0 mmol/L (21-32) L* 02/15/19 10:07 BUN 85 mg/dL (7-18) H 02/15/19 10:07 Creatinine 4.11 mg/dL (0.55-1.02) H 02/15/19 10:07 Est GFR (MDRD) Af Amer 14 (>60) L 02/15/19 10:07 Est GFR (MDRD) Non-Af 12 (>60) L 02/15/19 10:07 Glucose 111 mg/dL (65-99) H 02/15/19 10:07 POC Glucose (mg/dL) 84 mg/dL (65-99) 02/15/19 11:41 Hemoglobin A1c 10.3 % 02/14/19 04:52 Lactic Acid 0.7 mmol/L (0.4-2.0) 02/14/19 18:05 Calcium 7.9 mg/dL (8.5-10.1) L 02/15/19 10:07 Corrected Calcium 9.5 mg/dL (8.5-10.1) 02/15/19 05:35 Magnesium 2.0 mg/dL (1.7-2.9) 02/14/19 04:52 Iron 24 ug/dL (50-175) L 02/14/19 13:30 Transferrin 219 mg/dL (202-364) 02/14/19 13:30 Ferritin 20 ng/mL (8-252) 02/14/19 13:30 Total Bilirubin 0.20 mg/dL (0.2-1.0) 02/15/19 05:35 AST 24 Units/L (15-37) 02/15/19 05:35 ALT 22 Units/L (12-78) 02/15/19 05:35 Alkaline Phosphatase 357 Units/L (46-116) H 02/15/19 05:35 Creatine Kinase 44 Units/L (26-192) 02/14/19 04:52 CK-MB (CK-2) 1.4 ng/mL (0-4.0) 02/14/19 04:52 CK/CKMB % Calc 3.2 % (<4) 02/14/19 04:52 Troponin I < 0.02 ng/mL (0-1.5) 02/14/19 04:52 Total Protein 7.0 g/dL (6.4-8.2) 02/15/19 05:35 Albumin 2.0 g/dL (3.4-5.0) L 02/15/19 05:35 Globulin 5.0 g/dL (2.5-4.5) H 02/15/19 05:35 Albumin/Globulin Ratio 0.4 Ratio (1.1-2.1) L 02/15/19 05:35 Vitamin B12 775 pg/mL (193-986) 02/14/19 13:30 Folate 19.1 ng/mL (>8.6) 02/14/19 13:30 Specimen Type Catherized urine 02/14/19 00:40 Urine Color Yellow (YELLOW) 02/14/19 00:40 Urine Appearance Clear (CLEAR) 02/14/19 00:40 Urine pH 5.0 (5.0 - 8.0) 02/14/19 00:40 Ur Specific [place] 1.015 (1.000-1.030) 02/14/19 00:40 Urine Protein 2+ (NEGATIVE) 02/14/19 00:40 Urine Glucose (UA) Negative (NEGATIVE) 02/14/19 00:40 Urine Ketones Negative (NEGATIVE) 02/14/19 00:40 Urine Occult Blood 4+ (NEGATIVE) 02/14/19 00:40 Urine Nitrite Negative (NEGATIVE) 02/14/19 00:40 Urine Bilirubin Negative (NEGATIVE) 02/14/19 00:40 Urine Urobilinogen Normal (NORMAL) 02/14/19 00:40 Ur Leukocyte Esterase 1+ (NEGATIVE) 02/14/19 00:40 Urine RBC 5-10 /HPF (0-3) A 02/14/19 00:40 Urine WBC 3-5 /HPF (0-5) 02/14/19 00:40 Ur Squamous Epith Cells Moderate /HPF (NEGATIVE) 02/14/19 00:40 Amorphous Sediment 2+ /HPF (NEGATIVE) 02/14/19 00:40 Urine Bacteria Negative /HPF (NEGATIVE) 02/14/19 00:40 Ur Culture Indicated? No/not indicated 02/14/19 00:40 Acetone, Semi-Quant Negative (NEGATIVE) 02/14/19 18:05 - Plan (1) Acute renal failure Status: Acute Plan: IV HYDRATION, LITER NS BOLUS GIVEN IN ER AND REPEATED ON 02/14 PM. MILLER CATH ON ADMISSION, REPEAT UA AND UC. BLOOD CULTURES ON ADMISSION, LACTIC ACID. IV ATBX THERAPY, STRICT I & OS. VERIFY HOME MEDICATION, BS CONTROL, EKG MONITORING (2) Hypotension Status: Acute (3) Diabetes 1.5, managed as type 2 Status: Acute (4) Sepsis associated hypotension Status: Acute (5) UTI (urinary tract infection) Status: Acute Qualifiers: Urinary tract infection type: site unspecified Hematuria presence: with hematuria Qualified Code(s): N39.0 - Urinary tract infection, site not specified; R31.9 - Hematuria, unspecified (6) Acidosis, metabolic Status: Acute Plan: IV HYDRATION, SERIAL BMP. REPEAT LACTIC ACID, ABG. SERUM ACETONE, BS CONTROL, TREATMENT OF ACUTE RENAL FAILURE (7) Dysphagia Status: Acute Plan: NPO FOR GI CONSULT THIS AM (8) Anemia Status: Acute Plan: FE REPLACEMENT THERAPY
[2019-02-15] MEDS ORDERED: NS 500 ML IV 500 ML IV ONE (13:42)
[2019-02-15] MEDS ORDERED: NS 100 ML IV 100 ML with VENOFER 400 MG IV NR ×2 (14:00)
[2019-02-15 14:25] LABS: BLOOD UREA NITROGEN 81 mg/dL (7-18); CALCIUM 8.4 mg/dL (8.5-10.1); CHLORIDE 111 mmol/L (98-107); CREATININE 4.07 mg/dL (0.55-1.02); SODIUM 144 mmol/L (136-145); eGFR NON BLACK RACES 12 (>60)
[2019-02-15 14:28] LABS: CARBON DIOXIDE 13.1 mmol/L (21-32)
[2019-02-15] MEDS ORDERED: STERILE WATER IRRIGATION IR ONE (14:41)
[2019-02-15] MEDS ORDERED: DIPRIVAN VIAL ONE (15:14)
--- NOTE | 2019-02-15 17:36 | OR.IMMED ---
Immediate Post-Op Note - Immediate Post-Op Note Pre-Op Diagnosis: dysphagia , abdominal pain Post-Op Diagnosis: pre pyloric ulcer . hiatal hernia and gastritis . Procedure: EGD with Bx Surgeon/[employer] Rep[employer]r: Kia Specimens Removed: antrum and fundus Drains: NONE Complications: no Condition: Stable (added carafate and Protonix .)
[2019-02-15 18:26] LABS: CALCIUM 8.5 mg/dL (8.5-10.1); CREATININE 3.98 mg/dL (0.55-1.02)
[2019-02-15 18:27] LABS: CARBON DIOXIDE 10.3 mmol/L (21-32)
[2019-02-15] MEDS: SNACK - Diabetic Appropriate PO SCH (20:45)
[2019-02-15] MEDS: CARAFATE PO SCH (21:33)
[2019-02-15] MEDS: HumuLIN R SUBCUT PRN (21:35)
[2019-02-16 00:46] LABS: CALCIUM 8.8 mg/dL (8.5-10.1); CREATININE 3.83 mg/dL (0.55-1.02)
[2019-02-16 00:49] LABS: CARBON DIOXIDE 13.1 mmol/L (21-32)
[2019-02-16] MEDS: NORCO 5/325 MG TAB PO PRN ×3 (03:02→20:17)
[2019-02-16 04:08] LABS: BASOPHILS # (AUTO) 0.1 X10^3/uL (0.0-0.1); BASOPHILS % (AUTO) 0.4 % (0.2-1.0); EOSINOPHILS # (AUTO) 0.3 x10^3/uL (0.0-0.2); EOSINOPHILS % (AUTO) 2.2 % (0.9-2.9); HEMATOCRIT 23.2 % (36.0-47.0); HEMOGLOBIN 7.3 g/dL (12.0-16.0); LYMPHOCYTES # (AUTO) 1.3 X10^3/uL (1.3-2.9); LYMPHOCYTES % (AUTO) 8.7 % (21.0-51.0); MEAN CORPUSCULAR HEMOGLOBIN 22.5 pg (27.0-34.0); MEAN CORPUSCULAR HGB CONC 31.5 g/dL (33.0-35.0); MEAN CORPUSCULAR VOLUME 71.5 fL (80.0-100.0); MEAN PLATELET VOLUME 8.2 fL (7.4-11.0); MONOCYTES # (AUTO) 1.2 x10^3/uL (0.3-0.8); MONOCYTES % (AUTO) 8.7 % (0.0-13.0); NEUTROPHILS # (AUTO) 11.5 x10^3/uL (2.2-4.8); PLATELET COUNT 305 X10^3/uL (150.0-450.0); RED BLOOD COUNT 3.24 X10^6/uL (3.5-5.4); RED CELL DISTRIBUTION WIDTH 19.1 % (11.6-16.5); WHITE BLOOD COUNT 14.4 X10^3/uL (3.6-10.0)
[2019-02-16 04:10] LABS: CALCIUM 8.3 mg/dL (8.5-10.1); CREATININE 3.73 mg/dL (0.55-1.02)
[2019-02-16 04:19] LABS: CARBON DIOXIDE 11.7 mmol/L (21-32)
[2019-02-16 04:28] LABS: ANISOCYTOSIS SLIGHT; HYPOCHROMASIA 1+; PLATELET MORPHOLOGY COMMENT NORMAL (NORMAL)
[2019-02-16] MEDS: CARAFATE PO SCH ×4 (05:46→20:36)
[2019-02-16 08:44] LABS: CALCIUM 9.2 mg/dL (8.5-10.1); CREATININE 3.59 mg/dL (0.55-1.02)
[2019-02-16 08:46] LABS: CARBON DIOXIDE 12.9 mmol/L (21-32)
[2019-02-16] MEDS: PROTONIX INJ 40 MG VIAL IVP SCH (09:06)
[2019-02-16] MEDS: ZOSYN VIAL 3.375 GRAMS 3.375 G in NS 100 ML IV + SPIKE MINIBAG* 100 ML IV SCH ×2 (09:07→20:37)
[2019-02-16] MEDS: BROVANA IN SCH ×2 (09:08→20:32)
--- NOTE | 2019-02-16 12:00 | DR.PROGNOT ---
Hospital Progress Notes - Progress Note for Day of: Progress Note Date: 02/16/19 - Chief Complaint Chief Complaint: swallowing is better and only mild epigastric pain , - Past Medical Family Social History Past Med/Fam/Surg Hx: No changes since H&P Allergies: Allergies No Known Drug Allergies Allergy (Verified 02/10/19 08:19) - Review Of Systems ROS: No change since H&P - Vital Signs Vital Signs: Temperature 98.7 F Pulse Rate 109 Respiratory Rate 24 Blood Pressure [Left Arm] 85/52 Blood Pressure 148/65 O2 Sat by Pulse Oximetry 100 - Physical Exam Oriented: Normal Eyes: Normal Ear: Normal Nose: Normal Throat: Normal Respiratory: Diminished Cardiovascular: Normal : Normal GI:Auscultation: Normal GI:Palpation: Normal GI: Tenderness: Epigastric (mild tenderness , normal BS ) Skin: Normal Musculoskeletal: Back:Thoracic, Back:Lumbar Psychiatric: Normal Mood Description: Calm Speech Pattern: Clear, Appropriate - Laboratory and Diagnostics Result Diagrams: 02/16/19 03:55 02/16/19 08:27 Labs: 02/14/19 09:40 Urine,[place] Urine Culture - Final 02/13/19 14:30 Blood Blood Culture - Preliminary 02/13/19 14:20 Blood Blood Culture - Preliminary Laboratory WBC 14.4 X10^3/uL (3.6-10.0) H 02/16/19 03:55 RBC 3.24 X10^6/uL (3.5-5.4) L 02/16/19 03:55 Hgb 7.3 g/dL (12.0-16.0) L 02/16/19 03:55 Hct 23.2 % (36.0-47.0) L 02/16/19 03:55 MCV 71.5 fL (80.0-100.0) L 02/16/19 03:55 MCH 22.5 pg (27.0-34.0) L 02/16/19 03:55 MCHC 31.5 g/dL (33.0-35.0) L 02/16/19 03:55 RDW 19.1 % (11.6-16.5) H 02/16/19 03:55 Plt Count 305 X10^3/uL (150.0-450.0) 02/16/19 03:55 Plt Count Comment Adequate (ADEQUATE) 02/16/19 03:55 MPV 8.2 fL (7.4-11.0) 02/16/19 03:55 Neut % (Auto) 80.0 % (42.0-75.0) H 02/16/19 03:55 Lymph % (Auto) 8.7 % (21.0-51.0) L 02/16/19 03:55 [place] % (Auto) 8.7 % (0.0-13.0) 02/16/19 03:55 Eos % (Auto) 2.2 % (0.9-2.9) 02/16/19 03:55 Baso % (Auto) 0.4 % (0.2-1.0) 02/16/19 03:55 Neut # (Auto) 11.5 x10^3/uL (2.2-4.8) H 02/16/19 03:55 Lymph # (Auto) 1.3 X10^3/uL (1.3-2.9) 02/16/19 03:55 [place] # (Auto) 1.2 x10^3/uL (0.3-0.8) H 02/16/19 03:55 Eos # (Auto) 0.3 x10^3/uL (0.0-0.2) H 02/16/19 03:55 Baso # (Auto) 0.1 X10^3/uL (0.0-0.1) 02/16/19 03:55 Absolute Nucleated RBC 0.0 /100WBC 02/16/19 03:55 Total Counted 100 02/13/19 12:45 Neutrophils % (Manual) 72 % (39-76) 02/13/19 12:45 Band Neutrophils % 4 % (0-10) 02/13/19 12:45 Lymphocytes % (Manual) 13 % (13-43) 02/13/19 12:45 Monocytes % (Manual) 7 % (4-9) 02/13/19 12:45 Eosinophils % (Manual) 3 % (0-6) 02/13/19 12:45 Atypical Lymphocytes 1 02/13/19 12:45 Plt Morphology Comment Normal (NORMAL) 02/16/19 03:55 RBC Morphology Abnormal (NORMAL) A 02/16/19 03:55 Hypochromasia 1+ A 02/16/19 03:55 Anisocytosis Slight A 02/16/19 03:55 Microcytosis Slight A 02/13/19 12:45 Sample Site Rra 02/15/19 08:54 ABG pH 7.190 (7.35-7.45) L* 02/15/19 08:54 ABG pCO2 20.0 mmHg (35.0-45.0) L 02/15/19 08:54 ABG pO2 98.0 mmHg (80.0-100.0) 02/15/19 08:54 ABG HCO3 7.6 mmol/L (22-26) L* 02/15/19 08:54 ABG O2 Saturation 96.0 % (90-100) 02/15/19 08:54 ABG Base Excess -18.6 mmol/L (-2.0-2.0) L 02/15/19 08:54 Armando Test Pos 02/15/19 08:54 A-a Gradient 27.0 mmHg 02/15/19 08:54 FiO2 21.0 02/15/19 08:54 Blood Gas Comments Pt toll well eb 02/15/19 08:54 Sodium 143 mmol/L (136-145) 02/16/19 08:27 Corrected Sodium 144 mmol/L (136-145) 02/16/19 08:27 Potassium 3.4 mmol/L (3.5-5.1) L 02/16/19 08:27 Chloride 111 mmol/L (98-107) H 02/16/19 08:27 Carbon Dioxide 12.9 mmol/L (21-32) L* 02/16/19 08:27 BUN 65 mg/dL (7-18) H 02/16/19 08:27 Creatinine 3.59 mg/dL (0.55-1.02) H 02/16/19 08:27 Est GFR (MDRD) Af Amer 17 (>60) L 02/16/19 08:27 Est GFR (MDRD) Non-Af 14 (>60) L 02/16/19 08:27 Glucose 148 mg/dL (65-99) H 02/16/19 08:27 POC Glucose (mg/dL) 202 mg/dL (65-99) H 02/16/19 11:24 Hemoglobin A1c 10.3 % 02/14/19 04:52 Lactic Acid 0.7 mmol/L (0.4-2.0) 02/14/19 18:05 Calcium 9.2 mg/dL (8.5-10.1) 02/16/19 08:27 Corrected Calcium 9.5 mg/dL (8.5-10.1) 02/15/19 05:35 Magnesium 2.0 mg/dL (1.7-2.9) 02/14/19 04:52 Iron 24 ug/dL (50-175) L 02/14/19 13:30 Transferrin 219 mg/dL (202-364) 02/14/19 13:30 Ferritin 20 ng/mL (8-252) 02/14/19 13:30 Total Bilirubin 0.20 mg/dL (0.2-1.0) 02/15/19 05:35 AST 24 Units/L (15-37) 02/15/19 05:35 ALT 22 Units/L (12-78) 02/15/19 05:35 Alkaline Phosphatase 357 Units/L (46-116) H 02/15/19 05:35 Creatine Kinase 44 Units/L (26-192) 02/14/19 04:52 CK-MB (CK-2) 1.4 ng/mL (0-4.0) 02/14/19 04:52 CK/CKMB % Calc 3.2 % (<4) 02/14/19 04:52 Troponin I < 0.02 ng/mL (0-1.5) 02/14/19 04:52 Total Protein 7.0 g/dL (6.4-8.2) 02/15/19 05:35 Albumin 2.0 g/dL (3.4-5.0) L 02/15/19 05:35 Globulin 5.0 g/dL (2.5-4.5) H 02/15/19 05:35 Albumin/Globulin Ratio 0.4 Ratio (1.1-2.1) L 02/15/19 05:35 Vitamin B12 775 pg/mL (193-986) 02/14/19 13:30 Folate 19.1 ng/mL (>8.6) 02/14/19 13:30 Specimen Type Catherized urine 02/14/19 00:40 Urine Color Yellow (YELLOW) 02/14/19 00:40 Urine Appearance Clear (CLEAR) 02/14/19 00:40 Urine pH 5.0 (5.0 - 8.0) 02/14/19 00:40 Ur Specific [place] 1.015 (1.000-1.030) 02/14/19 00:40 Urine Protein 2+ (NEGATIVE) 02/14/19 00:40 Urine Glucose (UA) Negative (NEGATIVE) 02/14/19 00:40 Urine Ketones Negative (NEGATIVE) 02/14/19 00:40 Urine Occult Blood 4+ (NEGATIVE) 02/14/19 00:40 Urine Nitrite Negative (NEGATIVE) 02/14/19 00:40 Urine Bilirubin Negative (NEGATIVE) 02/14/19 00:40 Urine Urobilinogen Normal (NORMAL) 02/14/19 00:40 Ur Leukocyte Esterase 1+ (NEGATIVE) 02/14/19 00:40 Urine RBC 5-10 /HPF (0-3) A 02/14/19 00:40 Urine WBC 3-5 /HPF (0-5) 02/14/19 00:40 Ur Squamous Epith Cells Moderate /HPF (NEGATIVE) 02/14/19 00:40 Amorphous Sediment 2+ /HPF (NEGATIVE) 02/14/19 00:40 Urine Bacteria Negative /HPF (NEGATIVE) 02/14/19 00:40 Ur Culture Indicated? No/not indicated 02/14/19 00:40 Acetone, Semi-Quant Negative (NEGATIVE) 02/14/19 18:05 Tissue Pathology To follow 02/15/19 13:58 - Assessment and Plan 1: distal gastric ulcer ,. on Protonix and carafate . will follow in 2 weeks . needs repeated EGD in 2 months to Bx the ulcer again - Problem Patient Problems: Patient Problems Acute renal failure (Acute) N17.9 Hypotension (Acute) I95.9 Diabetes 1.5, managed as type 2 (Acute) E13.9 Sepsis associated hypotension (Acute) A41.9, I95.9 Acidosis, metabolic (Acute) E87.2 Dysphagia (Acute) R13.10 Anemia (Acute) D64.9
[2019-02-16 12:17] LABS: CALCIUM 8.6 mg/dL (8.5-10.1); CREATININE 3.52 mg/dL (0.55-1.02)
[2019-02-16 12:18] LABS: CARBON DIOXIDE 12.8 mmol/L (21-32)
[2019-02-16] MEDS: HumuLIN R SUBCUT PRN ×3 (12:19→20:39)
[2019-02-16 16:06] LABS: CALCIUM 8.7 mg/dL (8.5-10.1); CARBON DIOXIDE 15.7 mmol/L (21-32); CREATININE 3.38 mg/dL (0.55-1.02)
[2019-02-16] MEDS ORDERED: K-DUR TAB 20 MEQ PO PRN (17:48)
[2019-02-16] MEDS ORDERED: MICRO K EXTEN CAP 10 MEQ PO PRN (17:48)
[2019-02-16] MEDS ORDERED: K-RIDER 10 MEQ/NS 100 ML 10 MEQ/100 ML BAG IV PRN (17:48)
[2019-02-16] MEDS ORDERED: POTASSIUM CHL 40 MEQ/NS 0.45% 500 ML IV PRN (17:48)
[2019-02-16] MEDS ORDERED: KLOR-CON PO PRN (17:48)
[2019-02-16] MEDS ORDERED: POTASSIUM CHLORIDE LIQ 20 MEQ UDC PO PRN (17:48)
[2019-02-16] MEDS ORDERED: POTASSIUM CHL 60 MEQ/NS 0.45% 500 ML IV PRN (17:48)
[2019-02-16] MEDS: NS 1000 ML 1,000 ML IV SCH (18:52)
[2019-02-16 20:21] LABS: CALCIUM 8.7 mg/dL (8.5-10.1); CREATININE 3.23 mg/dL (0.55-1.02)
[2019-02-16 20:22] LABS: CARBON DIOXIDE 13.1 mmol/L (21-32)
[2019-02-16] MEDS: SNACK - Diabetic Appropriate PO SCH (20:36)
[2019-02-16] MEDS: K-DUR TAB 20 MEQ PO SCH (20:37)
[2019-02-17 00:51] LABS: CALCIUM 8.8 mg/dL (8.5-10.1); CARBON DIOXIDE 15.3 mmol/L (21-32); CREATININE 3.1 mg/dL (0.55-1.02)
[2019-02-17] MEDS: MAGNESIUM SULFATE 1 GRAM/100 mL PREMIX 1 GM/100 ML BAG IV PRN ×2 (01:26→03:06)
[2019-02-17] MEDS: NS 1000 ML 1,000 ML IV SCH ×2 (03:06→06:32)
[2019-02-17 05:18] LABS: BASOPHILS # (AUTO) 0.1 X10^3/uL (0.0-0.1); BASOPHILS % (AUTO) 0.6 % (0.2-1.0); EOSINOPHILS # (AUTO) 0.5 x10^3/uL (0.0-0.2); EOSINOPHILS % (AUTO) 3.4 % (0.9-2.9); HEMATOCRIT 24.1 % (36.0-47.0); HEMOGLOBIN 7.6 g/dL (12.0-16.0); LYMPHOCYTES % (AUTO) 12.8 % (21.0-51.0); MEAN CORPUSCULAR HEMOGLOBIN 22.5 pg (27.0-34.0); MEAN CORPUSCULAR HGB CONC 31.5 g/dL (33.0-35.0); MEAN CORPUSCULAR VOLUME 71.4 fL (80.0-100.0); MEAN PLATELET VOLUME 8.1 fL (7.4-11.0); MONOCYTES # (AUTO) 1.3 x10^3/uL (0.3-0.8); MONOCYTES % (AUTO) 8.3 % (0.0-13.0); NEUTROPHILS # (AUTO) 11.4 x10^3/uL (2.2-4.8); NEUTROPHILS % (AUTO) 74.9 % (42.0-75.0); PLATELET COUNT 354 X10^3/uL (150.0-450.0); RED BLOOD COUNT 3.37 X10^6/uL (3.5-5.4); RED CELL DISTRIBUTION WIDTH 19.4 % (11.6-16.5); WHITE BLOOD COUNT 15.3 X10^3/uL (3.6-10.0)
[2019-02-17] MEDS: NORCO 5/325 MG TAB PO PRN ×2 (05:33→13:10)
[2019-02-17 05:34] LABS: CALCIUM 8.8 mg/dL (8.5-10.1); COR CA(FOR HYPOALB) 10.4 mg/dL (8.5-10.1); CREATININE 2.97 mg/dL (0.55-1.02); TOTAL PROTEIN 6.8 g/dL (6.4-8.2); URIC ACID 9.6 mg/dL (2.6-6.0)
[2019-02-17 05:52] LABS: CARBON DIOXIDE 12.9 mmol/L (21-32)
--- NOTE | 2019-02-17 05:59 | RAD ---
Examination: AP chest History: Cough SOB Comparison 02/15/2019 Findings: The heart is not significantly enlarged. There are areas of linear density in both lung bases, consistent with fibrosis or subsegmental atelectasis. No consolidation, pneumonia, pleural fluid or edema identified. Impression: Minimal bibasal fibrosis/atelectasis. Reported By:
[2019-02-17 06:00] LABS: ANISOCYTOSIS SLIGHT; HYPOCHROMASIA 1+; PLATELET MORPHOLOGY COMMENT NORMAL (NORMAL)
[2019-02-17] MEDS: CARAFATE PO SCH ×4 (06:31→21:22)
[2019-02-17] MEDS: HumuLIN R SUBCUT PRN ×4 (06:32→21:30)
[2019-02-17] MEDS: BROVANA IN SCH ×2 (08:05→20:07)
[2019-02-17] MEDS: PROTONIX INJ 40 MG VIAL IVP SCH (08:58)
[2019-02-17] MEDS: K-DUR TAB 20 MEQ PO SCH (08:58)
[2019-02-17] MEDS: ZOSYN VIAL 3.375 GRAMS 3.375 G in NS 100 ML IV + SPIKE MINIBAG* 100 ML IV SCH ×2 (08:59→21:22)
[2019-02-17] MEDS ORDERED: NS 1/2 1000 ML IV 1,000 ML IV ONE (09:13)
[2019-02-17] MEDS: NS 1/2 + KCL 20 MEQ/L 1,000 ML IV SCH ×2 (09:17→21:05)
[2019-02-17] MEDS: K-LYTE EFFERVESCENT PO SCH ×2 (09:52→21:22)
[2019-02-17] MEDS ORDERED: K-LYTE EFFERVESCENT ONE (09:54)
[2019-02-17 10:42] LABS: CALCIUM 8.7 mg/dL (8.5-10.1); CREATININE 2.87 mg/dL (0.55-1.02)
[2019-02-17 10:43] LABS: CARBON DIOXIDE 14.6 mmol/L (21-32)
[2019-02-17] MEDS: SNACK - Diabetic Appropriate PO SCH (20:00)
[2019-02-18] MEDS: NORCO 5/325 MG TAB PO PRN ×3 (00:05→22:40)
[2019-02-18] MEDS: NS 1/2 + KCL 20 MEQ/L 1,000 ML IV SCH ×3 (01:00→12:38)
[2019-02-18 05:11] LABS: BASOPHILS # (AUTO) 0.1 X10^3/uL (0.0-0.1); BASOPHILS % (AUTO) 0.5 % (0.2-1.0); EOSINOPHILS # (AUTO) 0.6 x10^3/uL (0.0-0.2); EOSINOPHILS % (AUTO) 3.8 % (0.9-2.9); HEMATOCRIT 21.4 % (36.0-47.0); LYMPHOCYTES # (AUTO) 2.9 X10^3/uL (1.3-2.9); LYMPHOCYTES % (AUTO) 18.5 % (21.0-51.0); MEAN CORPUSCULAR HEMOGLOBIN 22.6 pg (27.0-34.0); MEAN CORPUSCULAR HGB CONC 31.7 g/dL (33.0-35.0); MEAN CORPUSCULAR VOLUME 71.2 fL (80.0-100.0); MONOCYTES # (AUTO) 1.2 x10^3/uL (0.3-0.8); MONOCYTES % (AUTO) 7.5 % (0.0-13.0); NEUTROPHILS # (AUTO) 11.1 x10^3/uL (2.2-4.8); NEUTROPHILS % (AUTO) 69.7 % (42.0-75.0); PLATELET COUNT 349 X10^3/uL (150.0-450.0); RED BLOOD COUNT 3.01 X10^6/uL (3.5-5.4); RED CELL DISTRIBUTION WIDTH 19.8 % (11.6-16.5); WHITE BLOOD COUNT 15.9 X10^3/uL (3.6-10.0)
[2019-02-18 05:25] LABS: ALBUMIN 1.9 g/dL (3.4-5.0); CALCIUM 8.6 mg/dL (8.5-10.1); COR CA(FOR HYPOALB) 10.3 mg/dL (8.5-10.1); CREATININE 2.46 mg/dL (0.55-1.02); FREE T4 (FREE THYROXINE) 0.98 ng/dL (0.76-1.46); MAGNESIUM 1.5 mg/dL (1.7-2.9); TOTAL PROTEIN 6.5 g/dL (6.4-8.2); TSH (3RD GENERATION) 3.748 uIU/mL (0.358-3.74)
[2019-02-18 05:45] LABS: CARBON DIOXIDE 13.6 mmol/L (21-32)
[2019-02-18] MEDS: CARAFATE PO SCH ×4 (05:45→20:44)
[2019-02-18 05:48] LABS: BAND NEUTROPHILS % 2 % (0-10); HEMOGLOBIN 6.8 g/dL (12.0-16.0)
[2019-02-18 05:49] LABS: ANISOCYTOSIS 1+; HYPOCHROMASIA 1+; PLATELET MORPHOLOGY COMMENT NORMAL (NORMAL)
[2019-02-18] MEDS: HumuLIN R SUBCUT PRN ×4 (05:50→20:46)
[2019-02-18] MEDS: PROTONIX INJ 40 MG VIAL IVP SCH (08:26)
[2019-02-18] MEDS: ZOSYN VIAL 3.375 GRAMS 3.375 G in NS 100 ML IV + SPIKE MINIBAG* 100 ML IV SCH ×2 (08:27→20:47)
[2019-02-18] MEDS: BROVANA IN SCH ×3 (09:32→19:59)
[2019-02-18] MEDS ORDERED: NS 500 ML IV 500 ML IV ONE (10:44)
[2019-02-18] MEDS ORDERED: TYLENOL 325 MG TAB PO PRN (10:44)
[2019-02-18] MEDS ORDERED: BENADRYL INJ 50 MG VIAL IVP PRN (10:44)
[2019-02-18] MEDS: MAGNESIUM SULFATE 1 GRAM/100 mL PREMIX 1 GM/100 ML BAG IV PRN ×2 (12:37→14:08)
--- NOTE | 2019-02-18 12:49 | RAD ---
STUDY: CHEST, ONE VIEW History: Coughing. Shortness of breath. Diminished bases. Comparison: February 17, 2019. Findings: The trachea is midline. There is some elevation of the right hemidiaphragm. There is no evidence of consolidation, significant infiltrate, effusion, or pneumothorax. The cardiac silhouette, mediastinum and osseous structures are unremarkable. IMPRESSION: 1. Elevation of the right hemidiaphragm. This is new since the prior study of February 17, 2019. Clinical correlation is recommended. Reported By:
--- NOTE | 2019-02-18 15:53 | CT ---
HISTORY: Headaches Study: CT brain without contrast Comparison: None Technique: Multiple axial images of the brain were obtained from the skull base to the vertex without administration of IV contrast. Findings: No acute intraparenchymal hemorrhage or mass can be identified. No extra-axial fluid collections are seen. No alteration in the attenuation of the brain parenchyma can be identified to suggest acute or subacute ischemic change. The ventricular system is symmetric and nondilated. The extracranial structures are grossly unremarkable. IMPRESSION: 1. No acute intracranial process can be identified. Reported By:
--- NOTE | 2019-02-18 15:54 | CT ---
HISTORY: Headache Study: CT paranasal sinuses without contrast Comparison: None Technique: Multiple axial images of the paranasal sinuses were obtained without the administration of IV contrast. Coronal and sagittal reformats were performed and reviewed. Findings: The maxillary sinuses, anterior and posterior ethmoid air cells, sphenoid sinuses, and frontal sinuses demonstrate no evidence for mucosal inflammatory disease. The nasal septum is midline. The ostiomeatal unit on the right and left are widely patent without inflammatory change. The left and right f deviated to the left rontal recesses are unremarkable in their appearance. Visualized portions of the posterior fossa and intracranial structures are unremarkable as well. IMPRESSION: 1. Unremarkable CT of the paranasal sinuses. Reported By:
[2019-02-18] MEDS: CLARITIN PO SCH (15:59)
[2019-02-18] MEDS: FLONASE NASAL SPRAY ENOSTRIL SCH (15:59)
[2019-02-18] MEDS: SNACK - Diabetic Appropriate PO SCH (20:00)
[2019-02-18 23:58] LABS: HEMATOCRIT 30.3 % (36.0-47.0)
[2019-02-19 00:09] LABS: HEMOGLOBIN 9.6 g/dL (12.0-16.0)
[2019-02-19] MEDS: NS 1/2 + KCL 20 MEQ/L 1,000 ML IV SCH ×2 (01:00→20:30)
[2019-02-19] MEDS: HumuLIN R SUBCUT PRN ×4 (06:05→20:25)
[2019-02-19 06:11] LABS: BASOPHILS # (AUTO) 0.1 X10^3/uL (0.0-0.1); BASOPHILS % (AUTO) 0.4 % (0.2-1.0); EOSINOPHILS # (AUTO) 0.5 x10^3/uL (0.0-0.2); EOSINOPHILS % (AUTO) 2.8 % (0.9-2.9); HEMATOCRIT 30.8 % (36.0-47.0); LYMPHOCYTES # (AUTO) 2.4 X10^3/uL (1.3-2.9); LYMPHOCYTES % (AUTO) 13.8 % (21.0-51.0); MEAN CORPUSCULAR HEMOGLOBIN 23.3 pg (27.0-34.0); MEAN CORPUSCULAR HGB CONC 31.7 g/dL (33.0-35.0); MEAN CORPUSCULAR VOLUME 73.5 fL (80.0-100.0); MEAN PLATELET VOLUME 8.1 fL (7.4-11.0); MONOCYTES # (AUTO) 1.2 x10^3/uL (0.3-0.8); MONOCYTES % (AUTO) 6.8 % (0.0-13.0); NEUTROPHILS # (AUTO) 13.1 x10^3/uL (2.2-4.8); NEUTROPHILS % (AUTO) 76.2 % (42.0-75.0); PLATELET COUNT 351 X10^3/uL (150.0-450.0); RED CELL DISTRIBUTION WIDTH 19.5 % (11.6-16.5); WHITE BLOOD COUNT 17.2 X10^3/uL (3.6-10.0)
[2019-02-19 06:31] LABS: ALBUMIN 2.2 g/dL (3.4-5.0); CALCIUM 8.7 mg/dL (8.5-10.1); COR CA(FOR HYPOALB) 10.1 mg/dL (8.5-10.1); CREATININE 2.39 mg/dL (0.55-1.02); MAGNESIUM 1.7 mg/dL (1.7-2.9); TOTAL PROTEIN 6.9 g/dL (6.4-8.2)
[2019-02-19] MEDS: CARAFATE PO SCH ×4 (06:36→20:31)
[2019-02-19 06:42] LABS: HEMOGLOBIN 9.8 g/dL (12.0-16.0)
[2019-02-19 06:43] LABS: BAND NEUTROPHILS % 4 % (0-10); HYPOCHROMASIA 1+; PLATELET MORPHOLOGY COMMENT NORMAL (NORMAL)
[2019-02-19] MEDS: NORCO 5/325 MG TAB PO PRN ×2 (07:21→18:37)
[2019-02-19] MEDS: BROVANA IN SCH ×2 (08:16→20:23)
[2019-02-19] MEDS: MAGNESIUM SULFATE 1 GRAM/100 mL PREMIX 1 GM/100 ML BAG IV PRN ×2 (08:54→09:41)
[2019-02-19] MEDS: ZOSYN VIAL 3.375 GRAMS 3.375 G in NS 100 ML IV + SPIKE MINIBAG* 100 ML IV SCH ×2 (09:42→20:33)
[2019-02-19] MEDS: CLARITIN PO SCH (09:43)
[2019-02-19] MEDS: PROTONIX INJ 40 MG VIAL IVP SCH (09:43)
[2019-02-19] MEDS: FLONASE NASAL SPRAY ENOSTRIL SCH (09:43)
[2019-02-19] MEDS ORDERED: KLOR-CON PO PRN (09:57)
[2019-02-19] MEDS ORDERED: POTASSIUM CHLORIDE LIQ 20 MEQ UDC PO PRN (09:57)
[2019-02-19] MEDS ORDERED: K-RIDER 10 MEQ/NS 100 ML 10 MEQ/100 ML BAG IV PRN (09:57)
[2019-02-19] MEDS ORDERED: POTASSIUM CHL 40 MEQ/NS 0.45% 500 ML IV PRN (09:57)
[2019-02-19] MEDS ORDERED: K-DUR TAB 20 MEQ PO PRN (09:57)
[2019-02-19] MEDS ORDERED: POTASSIUM CHL 60 MEQ/NS 0.45% 500 ML IV PRN (09:57)
[2019-02-19] MEDS ORDERED: MICRO K EXTEN CAP 10 MEQ PO PRN (09:57)
--- NOTE | 2019-02-19 10:02 | RAD ---
History: Abdominal distention Study: Acute abdominal series Comparison: CT abdomen and pelvis dated February 13, 2019 Findings: The lungs are grossly clear and the heart and mediastinum are unremarkable. The bowel gas pattern is unremarkable. There are cholecystectomy surgical clips. There are prominent degenerative osteophytes in the lumbar spine especially at L3-4. No urinary tract calcification is suggested. There is no free air or fluid level. There are surgical clips in the right axilla. Impression: No evidence for acute disease Reported By:
--- NOTE | 2019-02-19 11:20 | RAD ---
History: Pain to right foot 3rd toe Study: Three views of the right foot Comparison: None Findings: There are osteophytes about the DIP joint of the 3rd toe. There is no fracture or dislocation or marginal erosion. There are also osteophytes about the DIP joint of the 4th toe. There are mild osteophytes about the metatarsal tarsal joints. Impression: Osteoarthritis, most prominent about the DIP joints of the 3rd and 4th toes Reported By:
[2019-02-19 12:50] LABS: BILIRUBIN,URINE NEGATIVE (NEGATIVE); BLOOD/HEMOGLOBIN,URINE 2+ (NEGATIVE); GLUCOSE, URINE 3+ (NEGATIVE); KETONES,URINE NEGATIVE (NEGATIVE); LEUKOCYTE ESTERASE ,URINE NEGATIVE (NEGATIVE); NITRITES,URINE NEGATIVE (NEGATIVE); PH,URINE 6.5 (5.0 - 8.0); PROTEIN,URINE 1+ (NEGATIVE); UROBILINOGEN,URINE NORMAL (NORMAL)
[2019-02-19 12:58] LABS: APPEARANCE,URINE CLEAR (CLEAR); BACTERIA,URINE NEGATIVE /HPF (NEGATIVE); COLOR,URINE PALE YELLOW (YELLOW); RBC,URINE 0-2 /HPF (0-3); RENAL EPITHELIAL CELLS,URINE RARE /HPF (NEGATIVE); SQUAMOUS EPITHELIAL CELL,UR RARE /HPF (NEGATIVE)
[2019-02-19] MEDS: SNACK - Diabetic Appropriate PO SCH (20:30)
[2019-02-20] MEDS: NS 1/2 + KCL 20 MEQ/L 1,000 ML IV SCH ×5 (01:00→16:11)
[2019-02-20] MEDS: NORCO 5/325 MG TAB PO PRN ×3 (01:45→22:25)
[2019-02-20] MEDS: HumuLIN R SUBCUT PRN ×4 (05:26→21:07)
[2019-02-20] MEDS: CARAFATE PO SCH ×4 (05:45→20:58)
[2019-02-20 06:11] LABS: BASOPHILS # (AUTO) 0.1 X10^3/uL (0.0-0.1); BASOPHILS % (AUTO) 0.7 % (0.2-1.0); EOSINOPHILS # (AUTO) 0.6 x10^3/uL (0.0-0.2); EOSINOPHILS % (AUTO) 3.1 % (0.9-2.9); HEMATOCRIT 30.5 % (36.0-47.0); HEMOGLOBIN 9.7 g/dL (12.0-16.0); LYMPHOCYTES # (AUTO) 2.8 X10^3/uL (1.3-2.9); LYMPHOCYTES % (AUTO) 14.1 % (21.0-51.0); MEAN CORPUSCULAR HEMOGLOBIN 23.4 pg (27.0-34.0); MEAN CORPUSCULAR HGB CONC 31.9 g/dL (33.0-35.0); MEAN CORPUSCULAR VOLUME 73.5 fL (80.0-100.0); MEAN PLATELET VOLUME 8.1 fL (7.4-11.0); MONOCYTES # (AUTO) 1.1 x10^3/uL (0.3-0.8); MONOCYTES % (AUTO) 5.5 % (0.0-13.0); NEUTROPHILS # (AUTO) 14.9 x10^3/uL (2.2-4.8); NEUTROPHILS % (AUTO) 76.6 % (42.0-75.0); PLATELET COUNT 375 X10^3/uL (150.0-450.0); RED BLOOD COUNT 4.15 X10^6/uL (3.5-5.4); RED CELL DISTRIBUTION WIDTH 19.8 % (11.6-16.5); WHITE BLOOD COUNT 19.5 X10^3/uL (3.6-10.0)
[2019-02-20 06:28] LABS: ALBUMIN 2.2 g/dL (3.4-5.0); CALCIUM 8.8 mg/dL (8.5-10.1); CARBON DIOXIDE 16.9 mmol/L (21-32); COR CA(FOR HYPOALB) 10.2 mg/dL (8.5-10.1); CREATININE 1.95 mg/dL (0.55-1.02)
[2019-02-20 06:39] LABS: HYPOCHROMASIA 1+; PLATELET MORPHOLOGY COMMENT NORMAL (NORMAL)
[2019-02-20] MEDS: CLARITIN PO SCH (08:43)
[2019-02-20] MEDS: FLONASE NASAL SPRAY ENOSTRIL SCH (08:44)
[2019-02-20] MEDS: PROTONIX INJ 40 MG VIAL IVP SCH (08:44)
[2019-02-20] MEDS: ZOSYN VIAL 3.375 GRAMS 3.375 G in NS 100 ML IV + SPIKE MINIBAG* 100 ML IV SCH (08:46)
[2019-02-20] MEDS: BROVANA IN SCH ×2 (09:20→21:06)
[2019-02-20 09:29] LABS: ABG BASE EXCESS -8.2 mmol/L (-2.0-2.0)
[2019-02-20 09:30] LABS: ABG HCO3 15.6 mmol/L (22-26)
[2019-02-20 10:03] LABS: LACTIC ACID 0.7 mmol/L (0.4-2.0)
[2019-02-20] MEDS: LOPRESSOR TAB 25 MG PO SCH ×2 (10:09→20:58)
[2019-02-20] MEDS: MERREM VIAL 500 MG in NS 100 ML IV + SPIKE MINIBAG* 100 ML IV SCH ×3 (10:09→21:59)
[2019-02-20] MEDS: MAGNESIUM SULFATE 1 GRAM/100 mL PREMIX 1 GM/100 ML BAG IV PRN ×2 (15:10→16:19)
[2019-02-20] MEDS: SNACK - Diabetic Appropriate PO SCH (19:51)
[2019-02-21] MEDS: NS 1/2 + KCL 20 MEQ/L 1,000 ML IV SCH ×2 (01:00→08:44)
[2019-02-21] MEDS: HumuLIN R SUBCUT PRN ×2 (05:45→12:14)
[2019-02-21] MEDS: MERREM VIAL 500 MG in NS 100 ML IV + SPIKE MINIBAG* 100 ML IV SCH (05:48)
[2019-02-21] MEDS: CARAFATE PO SCH ×2 (05:48→10:38)
[2019-02-21 06:06] LABS: BASOPHILS # (AUTO) 0.1 X10^3/uL (0.0-0.1); BASOPHILS % (AUTO) 0.6 % (0.2-1.0); EOSINOPHILS # (AUTO) 0.7 x10^3/uL (0.0-0.2); EOSINOPHILS % (AUTO) 3.6 % (0.9-2.9); HEMATOCRIT 31.1 % (36.0-47.0); HEMOGLOBIN 9.9 g/dL (12.0-16.0); LYMPHOCYTES # (AUTO) 2.8 X10^3/uL (1.3-2.9); LYMPHOCYTES % (AUTO) 15.5 % (21.0-51.0); MEAN CORPUSCULAR HEMOGLOBIN 23.6 pg (27.0-34.0); MEAN CORPUSCULAR HGB CONC 31.8 g/dL (33.0-35.0); MEAN CORPUSCULAR VOLUME 74.2 fL (80.0-100.0); MEAN PLATELET VOLUME 8.4 fL (7.4-11.0); MONOCYTES # (AUTO) 1.2 x10^3/uL (0.3-0.8); MONOCYTES % (AUTO) 6.7 % (0.0-13.0); NEUTROPHILS # (AUTO) 13.4 x10^3/uL (2.2-4.8); NEUTROPHILS % (AUTO) 73.6 % (42.0-75.0); PLATELET COUNT 394 X10^3/uL (150.0-450.0); RED BLOOD COUNT 4.18 X10^6/uL (3.5-5.4); RED CELL DISTRIBUTION WIDTH 19.7 % (11.6-16.5); WHITE BLOOD COUNT 18.2 X10^3/uL (3.6-10.0)
[2019-02-21 06:19] LABS: ALBUMIN 2.3 g/dL (3.4-5.0); CALCIUM 8.8 mg/dL (8.5-10.1); CARBON DIOXIDE 17.9 mmol/L (21-32); COR CA(FOR HYPOALB) 10.2 mg/dL (8.5-10.1); CREATININE 1.8 mg/dL (0.55-1.02); MAGNESIUM 1.9 mg/dL (1.7-2.9); TOTAL PROTEIN 7.1 g/dL (6.4-8.2)
[2019-02-21 06:46] LABS: HYPOCHROMASIA 1+; PLATELET MORPHOLOGY COMMENT NORMAL (NORMAL)
[2019-02-21] MEDS: CLARITIN PO SCH (08:44)
[2019-02-21] MEDS: PROTONIX INJ 40 MG VIAL IVP SCH (08:44)
[2019-02-21] MEDS: LOPRESSOR TAB 25 MG PO SCH (08:44)
[2019-02-21] MEDS: FLONASE NASAL SPRAY ENOSTRIL SCH (08:44)
[2019-02-21] MEDS: BROVANA IN SCH (09:40)
[2019-02-21] MEDS ORDERED: SODIUM BICARBONATE TAB 650MG PO SCH (10:00)
[2019-02-21 10:05] VITALS: BP 153/83
--- NOTE | 2019-02-21 11:59 | RAD ---
History: Left knee pain Study: Three views of the left knee Comparison: None Findings: There are moderate osteophytes about the lateral joint space compartment. No effusion is demonstrated. There are moderate osteophytes about the femoropatellar joint space. Impression: Osteoarthritis most prominent about the lateral joint space Reported By:
--- NOTE | 2019-02-21 11:59 | RAD ---
History: Right knee pain Study: Four views of the right knee Comparison: None Findings: There is heavy coarse calcification adjacent to the medial femoral condyle. There is lateral joint space osteophyte formation. There is spurring about the intercondylar notch. The femoropatellar joint space is narrowed with osteophyte formation. No effusion is suggested. Impression: Osteoarthritis. Probable old medial collateral ligament injury Reported By:
--- NOTE | 2019-02-21 13:08 | PCM.PROG ---
Progress Note - Progress Note for Day of Date of Exam: 02/20/19 - Subjective Subjective: Mrs. Rees is a pleasant 58-year-old white female who was an ER admission with E.coli sepsis due to urinary tract infection, urosepsis. The patient was started on IV antibiotics on admission. She has also had acute renal insufficiency. The patient has had significant improvement in BUN and creatine with aggressive hydration. She has also had potassium replacement and treatment with PPI for gastritis. The patient is status post EGD per Dr. Jain. The patient had complaints of persistant slight headache. She had a CT scan of her head and sinuses which were unremarkable. The patient also had some redness to her right third toe without tenderness this morning and denies injury. The x-ray just showed osteoarthritis. The patients renal function improving, BUN 24 and creatine 1.95 Her white count was 19.5 and hemoglobin was 9.7. Pt did receive 2 nits prbc, and iron replacement therapy for anemia. Pt has been afebrile, BC negative. We encouraged oral hydration with patient. Repeat cultures, stool studies ordered. Meropenem IV started.The patient reports a good bowel movement, no blood in stool. No abdominal pain or constipation. Pt states she feels much better, she reports she wants go home. We discussed plans for possbile d/c home with need for medications changes and SSI education for patient from nursing staff. - Past Medical Family Social History Past Med/Fam/Surg Hx: No changes since H&P Allergies: Allergies No Known Drug Allergies Allergy (Verified 02/10/19 08:19) - Review of Systems ROS: No change since H&P - Vital Signs and I&O's Vital Signs: Temperature 98.6 F Pulse Rate 85 Respiratory Rate 22 Blood Pressure [Left Arm] 85/52 Blood Pressure 153/83 O2 Sat by Pulse Oximetry 100 Intake and Output: Intake & Output 02/19/19 02/20/19 02/21/19 02/22/19 11:59 11:59 11:59 11:59 Intake Total 3762 / 3762 3097 / 3097 3745 / 3745 Balance 3762 / 3762 3097 / 3097 3745 / 3745 - Physical Exam Oriented: Normal Eyes: Normal Ear: Normal Nose: Normal Throat: Normal Respiratory: Diminished Cardiovascular: Normal : Normal Auscultation: Bowel Sounds: Normal Tenderness: Normal Skin: Normal Musculoskeletal: Back:Thoracic, Back:Lumbar Psychiatric: Normal Mood Description: Calm Speech Pattern: Clear, Appropriate - Laboratory and Diagnostics Result Diagrams: 02/21/19 05:11 02/21/19 05:11 Labs: 02/20/19 13:21 Stool Stool Culture - Preliminary 02/20/19 13:21 Stool - Final 02/19/19 12:05 Urine,Clean Catch Urine Culture - Final 02/13/19 14:30 Blood Blood Culture - Final 02/13/19 14:20 Blood Blood Culture - Final 02/14/19 09:40 Urine,[place] Urine Culture - Final Laboratory WBC 18.2 X10^3/uL (3.6-10.0) H 02/21/19 05:11 RBC 4.18 X10^6/uL (3.5-5.4) 02/21/19 05:11 Hgb 9.9 g/dL (12.0-16.0) L 02/21/19 05:11 Hct 31.1 % (36.0-47.0) L 02/21/19 05:11 MCV 74.2 fL (80.0-100.0) L 02/21/19 05:11 MCH 23.6 pg (27.0-34.0) L 02/21/19 05:11 MCHC 31.8 g/dL (33.0-35.0) L 02/21/19 05:11 RDW 19.7 % (11.6-16.5) H 02/21/19 05:11 Plt Count 394 X10^3/uL (150.0-450.0) 02/21/19 05:11 Plt Count Comment Adequate (ADEQUATE) 02/21/19 05:11 MPV 8.4 fL (7.4-11.0) 02/21/19 05:11 Neut % (Auto) 73.6 % (42.0-75.0) 02/21/19 05:11 Lymph % (Auto) 15.5 % (21.0-51.0) L 02/21/19 05:11 [place] % (Auto) 6.7 % (0.0-13.0) 02/21/19 05:11 Eos % (Auto) 3.6 % (0.9-2.9) H 02/21/19 05:11 Baso % (Auto) 0.6 % (0.2-1.0) 02/21/19 05:11 Neut # (Auto) 13.4 x10^3/uL (2.2-4.8) H 02/21/19 05:11 Lymph # (Auto) 2.8 X10^3/uL (1.3-2.9) 02/21/19 05:11 [place] # (Auto) 1.2 x10^3/uL (0.3-0.8) H 02/21/19 05:11 Eos # (Auto) 0.7 x10^3/uL (0.0-0.2) H 02/21/19 05:11 Baso # (Auto) 0.1 X10^3/uL (0.0-0.1) 02/21/19 05:11 Absolute Nucleated RBC 0.0 /100WBC 02/21/19 05:11 Total Counted 100 02/19/19 05:20 Neutrophils % (Manual) 78 % (39-76) H 02/19/19 05:20 Band Neutrophils % 4 % (0-10) 02/19/19 05:20 Lymphocytes % (Manual) 12 % (13-43) L 02/19/19 05:20 Monocytes % (Manual) 4 % (4-9) 02/19/19 05:20 Eosinophils % (Manual) 2 % (0-6) 02/19/19 05:20 Atypical Lymphocytes 1 02/13/19 12:45 Plt Morphology Comment Normal (NORMAL) 02/21/19 05:11 RBC Morphology Abnormal (NORMAL) A 02/21/19 05:11 Hypochromasia 1+ A 02/21/19 05:11 Anisocytosis 1+ A 02/18/19 04:43 Microcytosis Slight A 02/13/19 12:45 ESR 81 MM/HOUR (0-20) H 02/20/19 05:07 Sample Site Rb 02/20/19 09:25 ABG pH 7.370 (7.35-7.45) 02/20/19 09:25 ABG pCO2 27.0 mmHg (35.0-45.0) L 02/20/19 09:25 ABG pO2 85.0 mmHg (80.0-100.0) 02/20/19 09:25 ABG HCO3 15.6 mmol/L (22-26) L* 02/20/19 09:25 ABG O2 Saturation 96.0 % (90-100) 02/20/19 09:25 ABG Base Excess -8.2 mmol/L (-2.0-2.0) L 02/20/19 09:25 Armando Test Na 02/20/19 09:25 A-a Gradient 31.0 mmHg 02/20/19 09:25 FiO2 21.0 02/20/19 09:25 Blood Gas Comments Luis Carlos well cb 02/20/19 09:25 Sodium 138 mmol/L (136-145) 02/21/19 05:11 Corrected Sodium 141 mmol/L (136-145) 02/21/19 05:11 Potassium 3.5 mmol/L (3.5-5.1) 02/21/19 05:11 Chloride 105 mmol/L (98-107) 02/21/19 05:11 Carbon Dioxide 17.9 mmol/L (21-32) L 02/21/19 05:11 BUN 29 mg/dL (7-18) H 02/21/19 05:11 Creatinine 1.80 mg/dL (0.55-1.02) H 02/21/19 05:11 Est GFR (MDRD) Af Amer 37 (>60) L 02/21/19 05:11 Est GFR (MDRD) Non-Af 31 (>60) L 02/21/19 05:11 Glucose 244 mg/dL (65-99) H 02/21/19 05:11 POC Glucose (mg/dL) 376 mg/dL (65-99) H 02/21/19 12:12 Hemoglobin A1c 10.3 % 02/14/19 04:52 Lactic Acid 0.7 mmol/L (0.4-2.0) 02/20/19 05:07 Uric Acid 9.6 mg/dL (2.6-6.0) H 02/17/19 04:57 Calcium 8.8 mg/dL (8.5-10.1) 02/21/19 05:11 Corrected Calcium 10.2 mg/dL (8.5-10.1) H 02/21/19 05:11 Magnesium 1.9 mg/dL (1.7-2.9) 02/21/19 05:11 Iron 24 ug/dL (50-175) L 02/14/19 13:30 Transferrin 219 mg/dL (202-364) 02/14/19 13:30 Ferritin 20 ng/mL (8-252) 02/14/19 13:30 Total Bilirubin 0.20 mg/dL (0.2-1.0) 02/21/19 05:11 AST 20 Units/L (15-37) 02/21/19 05:11 ALT 23 Units/L (12-78) 02/21/19 05:11 Alkaline Phosphatase 323 Units/L (46-116) H 02/21/19 05:11 Creatine Kinase 44 Units/L (26-192) 02/14/19 04:52 CK-MB (CK-2) 1.4 ng/mL (0-4.0) 02/14/19 04:52 CK/CKMB % Calc 3.2 % (<4) 02/14/19 04:52 Troponin I < 0.02 ng/mL (0-1.5) 02/14/19 04:52 C-Reactive Protein 20.60 mg/L (0-3.0) H 02/20/19 05:07 Total Protein 7.1 g/dL (6.4-8.2) 02/21/19 05:11 Albumin 2.3 g/dL (3.4-5.0) L 02/21/19 05:11 Globulin 4.8 g/dL (2.5-4.5) H 02/21/19 05:11 Albumin/Globulin Ratio 0.5 Ratio (1.1-2.1) L 02/21/19 05:11 Vitamin B12 775 pg/mL (193-986) 02/14/19 13:30 Folate 19.1 ng/mL (>8.6) 02/14/19 13:30 Free T4 0.98 ng/dL (0.76-1.46) 02/18/19 04:43 TSH 3rd Generation 3.748 uIU/mL (0.358-3.74) H 02/18/19 04:43 Specimen Type Clean catch urine 02/19/19 12:05 Urine Color Pale yellow (YELLOW) 02/19/19 12:05 Urine Appearance Clear (CLEAR) 02/19/19 12:05 Urine pH 6.5 (5.0 - 8.0) 02/19/19 12:05 Ur Specific Mck[place] 1.005 (1.000-1.030) 02/19/19 12:05 Urine Protein 1+ (NEGATIVE) 02/19/19 12:05 Urine Glucose (UA) 3+ (NEGATIVE) 02/19/19 12:05 Urine Ketones Negative (NEGATIVE) 02/19/19 12:05 Urine Occult Blood 2+ (NEGATIVE) 02/19/19 12:05 Urine Nitrite Negative (NEGATIVE) 02/19/19 12:05 Urine Bilirubin Negative (NEGATIVE) 02/19/19 12:05 Urine Urobilinogen Normal (NORMAL) 02/19/19 12:05 Ur Leukocyte Esterase Negative (NEGATIVE) 02/19/19 12:05 Urine RBC 0-2 /HPF (0-3) 02/19/19 12:05 Urine WBC 0-2 /HPF (0-5) 02/19/19 12:05 Ur Squamous Epith Cells Rare /HPF (NEGATIVE) 02/19/19 12:05 Ur Renal Epithelial Cell Rare /HPF (NEGATIVE) 02/19/19 12:05 Amorphous Sediment 2+ /HPF (NEGATIVE) 02/14/19 00:40 Urine Bacteria Negative /HPF (NEGATIVE) 02/19/19 12:05 Ur Culture Indicated? No/not indicated 02/19/19 12:05 Stool Description 35 g. brown/unformed 02/16/19 19:39 Stl Occult Blood (IFOB) Negative (NEGATIVE) 02/16/19 19:39 Stool for White Cells Negative (NEGATIVE) 02/20/19 13:21 Stl C. diff Tox B Gene Negative (NEGATIVE) 02/20/19 13:21 Stl C. diff [id number] Negative (NEGATIVE) 02/20/19 13:21 Acetone, Semi-Quant Negative (NEGATIVE) 02/14/19 18:05 Tissue Pathology To follow 02/15/19 13:58 Blood Type A POSITIVE 02/18/19 11:00 Antibody Screen Negative 02/18/19 11:00 Crossmatch See Detail 02/18/19 11:00 - Plan (1) Acute renal failure Status: Acute Plan: IV HYDRATION, LITER NS BOLUS GIVEN IN ER AND REPEATED ON 02/14 PM. MILLER CATH ON ADMISSION, REPEAT UA AND UC. BLOOD CULTURES ON ADMISSION AND LACTIC ACID NEGATIVE. IV ATBX THERAPY, STRICT I & OS. VERIFY HOME MEDICATION, BS CONTROL, EKG MONITORING (2) Hypotension Status: Acute (3) Diabetes 1.5, managed as type 2 Status: Acute (4) Sepsis associated hypotension Status: Acute (5) UTI (urinary tract infection) Status: Acute Qualifiers: Urinary tract infection type: site unspecified Hematuria presence: with hematuria Qualified Code(s): N39.0 - Urinary tract infection, site not specified; R31.9 - Hematuria, unspecified (6) Acidosis, metabolic Status: Acute Plan: IV HYDRATION, SERIAL BMP. REPEAT LACTIC ACID, ABG. SERUM ACETONE, BS CONTROL, TREATMENT OF ACUTE RENAL FAILURE (7) Dysphagia Status: Acute Plan: NPO FOR GI CONSULT THIS AM (8) Anemia Status: Acute Plan: FE REPLACEMENT THERAPY
--- NOTE | 2019-02-21 15:07 | MRI ---
MR lumbar spine without contrast Indication: Back pain for years. Comparison: 02/13/2019 CT abdomen and pelvis Technique: Multiplanar multisequence imaging through the lumbar spine without contrast. Findings: Bone marrow signal is normal. Visualized abdominopelvic soft tissue shows no convincing acute abnormality. Few renal cysts are partially visualized. The conus terminates at the L2 pedicle level. SI joint DJD noted. There is possible thickening of the endometrium The lower thoracic spine shows DJD with disc bulges. T11-T12: Circumferential disc bulge with slightly asymmetric to the left protrusion causes mild spinal canal narrowing. T12-L1: Circumferential disc bulge and mild facet arthropathy causes minimal spinal canal narrowing. L1-L2: Circumferential disc bulge, slightly asymmetric to the right with moderate facet arthropathy causes mild spinal canal narrowing and no high-grade neural foramen narrowing L2-L3: Circumferential disc bulge and moderate facet arthropathy causes mild spinal canal narrowing and moderate right lateral recess narrowing with mild right and mild left neural foramen narrowing L3-L4: Circumferential disc bulge and moderate facet arthropathy causes moderate to severe spinal canal stenosis and probable severe left lateral recess stenosis with moderate right lateral recess stenosis. There is [id number] right neural foramen narrowing and moderate to severe left neural foramen narrowing. Modic endplate changes noted L4-L5: There is circumferential disc bulge and moderate facet arthropathy causing moderate spinal canal narrowing. There is [id number] right and minimal left neural foramen narrowing. There is moderate right lateral recess narrowing. L5-S1: Circumferential disc bulge and moderate facet arthropathy causes mild spinal canal narrowing. Minimal bilateral neural foramen narrowing noted. Impression: 1. Multilevel spine disc degenerative change facet arthropathy, worst at L3-L4, with other levels as above 2. Neural foramen stenosis is worse on the left at L3-L4 3. Areas of neural foramen narrowing and lateral recess narrowing as above 4. Question thickened endometrium. Recommend ultrasound follow-up to exclude neoplasia. Reported By:
== END 2019-02-21 13:07 | disposition home or self-care (01) | DRG 872 ==
LOC: ER 11:36 → ICU 17:20
PROVIDERS: ADMIT Internal Medicine; ATTEND Internal Medicine
DX: E87.2 Acidosis; R26.89 Other abnormalities of gait and mobility; Z87.440 Personal history of urinary (tract) infections; N39.0 Urinary tract infection, site not specified; M10.9 Gout, unspecified; M51.36 Other intervertebral disc degeneration, lumbar region; E86.0 Dehydration; R10.84 Generalized abdominal pain; N17.8 Other acute kidney failure; M48.061 Spinal stenosis, lumbar region without neurogenic claudication; R94.31 Abnormal electrocardiogram [ECG] [EKG]; D50.8 Other iron deficiency anemias; K29.70 Gastritis, unspecified, without bleeding; K21.9 Gastro-esophageal reflux disease without esophagitis; M15.9 Polyosteoarthritis, unspecified; R51 Headache; R13.11 Dysphagia, oral phase; M25.561 Pain in right knee; I10 Essential (primary) hypertension; J44.9 Chronic obstructive pulmonary disease, unspecified; R65.20 Severe sepsis without septic shock; K27.3 Acute peptic ulcer, site unspecified, without hemorrhage or perforation; I95.89 Other hypotension; K44.9 Diaphragmatic hernia without obstruction or gangrene; M25.562 Pain in left knee; A41.51 Sepsis due to Escherichia coli [E. coli]
CPT/HCPCS: 36415; 36430; 36600; 70450; 70486; 71010; 71045; 72148; 73564; 73630; 74022; 74176; 76770; 80048; 80053; 81001; 82009; 82270; 82550; 82553; 82607; 82728; 82746; 82803; 83036; 83540; 83605; 83630; 83735; 84439; 84443; 84466; 84484; 84550; 85014; 85018; 85025; 85652; 86140; 86850; 86900; 86901; 86922; 87040; 87045; 87086; 87427; 87449; 87493; 87899; 92526; 92610; 93005; 94640; 96365; 96367; 96374; 97161; 97165; 99284; A4217; A4222; C9113; J7030; P9016; J1200; J1756; J1815; J2185; J2543; J2704; J3475; J3490; J7040; J7050; J8499

== ENCOUNTER 2022-01-06 15:17 | Observation (INO) ==
[2022-01-06] MEDS ORDERED: MORPHINE SULFATE INJ 2 MG INJ ONE (16:43)
[2022-01-06] MEDS ORDERED: NS 1,000 ML IV 1,000 ML ONE (16:43)
[2022-01-06] MEDS: NS 1,000 ML IV 1,000 ML IV SCH (16:46)
[2022-01-06] MEDS: MORPHINE SULFATE INJ 2 MG INJ IVP PRN (16:48)
[2022-01-06 17:23] LABS: BASOPHILS # (AUTO) 0.1 X10^3/uL (0.0-0.1); BASOPHILS % (AUTO) 1.1 % (0.2-1.0); EOSINOPHILS # (AUTO) 0.3 x10^3/uL (0.0-0.2); EOSINOPHILS % (AUTO) 3.5 % (0.9-2.9); HEMATOCRIT 36.9 % (36.0-47.0); HEMOGLOBIN 12.3 g/dL (12.0-16.0); LYMPHOCYTES # (AUTO) 2.3 X10^3/uL (1.3-2.9); LYMPHOCYTES % (AUTO) 29.5 % (21.0-51.0); MEAN CORPUSCULAR HEMOGLOBIN 28.2 pg (27.0-34.0); MEAN CORPUSCULAR HGB CONC 33.4 g/dL (33.0-35.0); MEAN CORPUSCULAR VOLUME 84.3 fL (80.0-100.0); MEAN PLATELET VOLUME 9.2 fL (7.4-11.0); MONOCYTES # (AUTO) 0.6 x10^3/uL (0.3-0.8); MONOCYTES % (AUTO) 7.9 % (0.0-13.0); NEUTROPHILS # (AUTO) 4.4 x10^3/uL (2.2-4.8); RED BLOOD COUNT 4.37 X10^6/uL (3.5-5.4); RED CELL DISTRIBUTION WIDTH 13.6 % (11.6-16.5); WHITE BLOOD COUNT 7.6 X10^3/uL (3.6-10.0)
[2022-01-06 17:37] LABS: ALBUMIN 3.2 g/dL (3.4-5.0); CALCIUM 8.3 mg/dL (8.5-10.1); CARBON DIOXIDE 23.6 mmol/L (21-32); COR CA(FOR HYPOALB) 8.9 mg/dL (8.5-10.1); CREATININE 1.98 mg/dL (0.55-1.02); TOTAL PROTEIN 7.5 g/dL (6.4-8.2); URIC ACID 8.4 mg/dL (2.6-6.0)
[2022-01-06 17:51] LABS: ERYTHROCYTE SEDIMENTATION RATE 79 MM/HOUR (0-20)
[2022-01-06] MEDS ORDERED: NEURONTIN CAP 300 MG PO PRN (18:15)
--- NOTE | 2022-01-06 18:28 | DR.H&P ---
H&P - History & Physical for Day of: H&P Date: 01/06/22 - Chief Complaint Chief Complaint: SEVERE PAIN TO BOTH FEET, WITH REDNESS AND SWELLING - History of Present Illness History of Present Illness: PT IS 61 WF DIRECT ADMIT FROM DR JENNINGS OFFICE WITH CO INTRACTABLE PAIN TO FEET WITH REDNESS AND SWELLING. PT REPORT SHE HAS HAD PAIN, REDNESS AND SWELLING TO BOTH FEET FOR ONE WEEK. PT WAS SEEN IN ER THIS PAST WEEK DUE TO ILLNESS AND HAD XRAY AND DIAGNOSED WITH CELLULITIS AND STARTED ON PO CEPHALEXIN WITHOUT IMPROVEMENT. PT HAS PMH OF RENAL DISEASE,HTN AND DM. PT ADMITTED FOR TREATMENT AND EVALUATION OF ACUTE ILLNESS. - Past Medical History Past Medical History: Hypertension, Diabetes, COPD, Asthma - Past Surgical History Surgical History: Appendectomy, Cholecystectomy, Ortho Surgery - Family History Family Medical History: Diabetes Mellitus, Coronary Artery Disease, Hypertension - Social History Does patient currently use any type of tobacco product: No Have you used tobacco products in the last 12 months: No Type of Tobacco Use: None Does any household member use tobacco: No Alcohol Use: None Drug Use: None Prescription drug monitoring program results: PDMP reviewed and no concerns identified - Medications Home Medications: diclofenac Allergy (Verified 01/06/22 16:51) CONTINUE taking the following medications cephalexin 250 mg capsule 1 cap PO BID 01/06/22 [History] diclofenac sodium 1 % topical gel 1 ea topical BID 01/06/22 [History] gabapentin 300 mg capsule 1 cap PO TID 01/06/22 [History] glimepiride 2 mg tablet 1 tab PO BID 01/06/22 [History] insulin degludec 100 unit/mL (3 mL) subcutaneous pen (Tresiba FlexTouch U-100 insulin) 30 unit subcut BID 01/06/22 [History] - Review of Systems Constitutional: Malaise Eyes: No Symptoms Reported ENT: No Symptoms Reported Respiratory: No Symptoms Reported Cardiovascular: Edema Gastrointestinal: Nausea Genitourinary: No Symptoms Reported Musculoskeletal: Foot Pain Skin: Other (REDNESS TO FEET) Neurological: No Symptoms Reported - Physical Exam Vital Signs: Temperature 97.8 F Pulse Rate [Left Brachial] 64 Respiratory Rate 18 Blood Pressure [Left Arm] 172/75 O2 Sat by Pulse Oximetry 99 Oriented: Normal Eyes: Blurred Vision (CHRONIC) Ear: Normal Nose: Normal Throat: Dry Respiratory: RLL Diminished, LLL Diminished Cardiovascular: Normal, Edema : Normal Auscultation: Bowel Sounds: Normal Palpation: Normal Tenderness: Normal Skin: Red, Tender (WITH INCREASED WARMTH TO BOTH FEET) Musculoskeletal: Right, Left, Ankle, Foot, Swelling, Tender, Motor Deficit Psychiatric: Anxiety Mood Description: Sad Affect: Anxious Speech Pattern: Clear, Appropriate - Assessment/Plan (1) Cellulitis of both feet Status: Acute Plan: ADMIT, BLOOD CULTURE ON ADMISSION. VERIFY HOME MEDICATION, BS AND BP CONTROL. CRP, SED RATE, URIC ACID LEVEL, RA FACTOR AND JOCELYN ON ADMISSION. GENTLE IV HYDRATION WITH STRICT I&OS. PAIN CONTROL, XRAY LEFT FOOT, CXR ON ADMISSION, RIGHT FOOT WAS XRAYED IN ER ONE WEEK AGO (2) Diabetes Status: Acute (3) Acute gouty arthropathy Status: Acute (4) Renal failure Status: Acute (5) Hypertension Status: Acute - Allergies Allergies/Adverse Reactions: Allergies Allergy/AdvReac Type Severity Reaction Status Date / Time diclofenac Allergy Verified 01/06/22 16:51
[2022-01-06 18:46] LABS: RHEUMATOID FACTOR NEGATIVE (NEGATIVE)
[2022-01-06] MEDS ORDERED: COLCRYS TAB 0.6 MG PO SCH (19:00)
[2022-01-06] MEDS: SOLU-Medrol 40 MG VIAL IVP SCH ×2 (19:28→21:22)
[2022-01-06] MEDS: LOPRESSOR TAB 25 MG PO SCH (20:19)
[2022-01-06] MEDS: NORCO 5/325 MG TAB PO PRN (20:19)
[2022-01-06] MEDS: NovoLIN R (or HumuLIN R) SUBCUT PRN (20:20)
[2022-01-06] MEDS: SNACK - Diabetic Appropriate PO SCH (21:09)
--- NOTE | 2022-01-06 22:09 | RAD ---
HISTORYcopd, sobSTUDYCHEST, 1 VIEWCOMPARISONNoneFINDINGSAbnormal opacity in the lower 3rd of the right lung could be pneumonia. There may be a similar but less prominent finding in the left lung base.Upper lungs clear.Heart size is magnified. Vascular calcifications are present compatible with atherosclerosis.Bones are unremarkable. [Surgical clips are present in the right axilla. [place] sutures are noted in the right humerus. Patient's clothing is noted.]IMPRESSION1. Possible basilar pneumoniaElectronically signed by: Quan Sol (Jan 06, 2022 22:08:02)
--- NOTE | 2022-01-06 22:54 | RAD ---
HISTORYLEFT FOOT PAINSTUDYFOOT, LEFTCOMPARISONNone availableTECHNIQUELeft foot radiographs, 3 views, AP, oblique and lateral projections limited by underpenetration. Limited as the patient's sock was left in place during imaging.FINDINGSNo fracture or dislocations.Normal joint spaces.Soft tissues are unremarkable.IMPRESSIONNo acute osseous abnormality. Limited by technique as the patient's sock was left in place during imaging.Electronically signed by: Nolan Montilla (Jan 06, 2022 22:51:58)
[2022-01-07] MEDS: NORCO 5/325 MG TAB PO PRN (04:49)
[2022-01-07] MEDS: SOLU-Medrol 40 MG VIAL IVP SCH (05:29)
[2022-01-07] MEDS: NovoLIN R (or HumuLIN R) SUBCUT PRN ×4 (05:30→21:36)
[2022-01-07 06:21] LABS: BASOPHILS % (AUTO) 0.4 % (0.2-1.0); EOSINOPHILS % (AUTO) 0.1 % (0.9-2.9); HEMATOCRIT 39.4 % (36.0-47.0); HEMOGLOBIN 13.1 g/dL (12.0-16.0); LYMPHOCYTES # (AUTO) 1.5 X10^3/uL (1.3-2.9); LYMPHOCYTES % (AUTO) 15.3 % (21.0-51.0); MEAN CORPUSCULAR HEMOGLOBIN 28.1 pg (27.0-34.0); MEAN CORPUSCULAR HGB CONC 33.3 g/dL (33.0-35.0); MEAN CORPUSCULAR VOLUME 84.2 fL (80.0-100.0); MEAN PLATELET VOLUME 9.7 fL (7.4-11.0); MONOCYTES # (AUTO) 0.2 x10^3/uL (0.3-0.8); MONOCYTES % (AUTO) 2.1 % (0.0-13.0); NEUTROPHILS # (AUTO) 7.9 x10^3/uL (2.2-4.8); NEUTROPHILS % (AUTO) 82.1 % (42.0-75.0); RED BLOOD COUNT 4.67 X10^6/uL (3.5-5.4); RED CELL DISTRIBUTION WIDTH 13.9 % (11.6-16.5); WHITE BLOOD COUNT 9.7 X10^3/uL (3.6-10.0)
[2022-01-07 06:31] LABS: ALANINE AMINOTRANSFERASE 41 Units/L (12-78); ALBUMIN 3.5 g/dL (3.4-5.0); ALKALINE PHOSPHATASE 228 Units/L (46-116); ASPARTATE AMINO TRANSFERASE 27 Units/L (15-37); BLOOD UREA NITROGEN 50 mg/dL (7-18); CALCIUM 8.6 mg/dL (8.5-10.1); CARBON DIOXIDE 22.7 mmol/L (21-32); CHLORIDE 104 mmol/L (98-107); COR NA(FOR HYPERGLY) 141 mmol/L (136-145); CREATININE 1.96 mg/dL (0.55-1.02); SODIUM 137 mmol/L (136-145); TOTAL PROTEIN 8.5 g/dL (6.4-8.2); eGFR NON BLACK RACES 27 (>60)
[2022-01-07] MEDS ORDERED: NEURONTIN CAP 100 MG PO PRN (08:00)
[2022-01-07] MEDS: ZYLOPRIM PO SCH (08:10)
[2022-01-07] MEDS: LOPRESSOR TAB 25 MG PO SCH ×2 (08:10→21:12)
[2022-01-07] MEDS: PROTONIX TAB 40 MG PO SCH (08:10)
[2022-01-07] MEDS: MORPHINE SULFATE INJ 2 MG INJ IVP PRN (08:48)
[2022-01-07] MEDS ORDERED: LANTUS SC SCH (09:00)
[2022-01-07] MEDS: LOVENOX INJ 30 MG SYR SC SCH (10:37)
[2022-01-07 11:36] VITALS: BMI 33.0
[2022-01-07] MEDS ORDERED: NORCO 7.5/325 MG TAB PO PRN (18:30)
[2022-01-07] MEDS: NS 1,000 ML IV 1,000 ML IV SCH (18:33)
[2022-01-07] MEDS: ROCEPHIN VIAL 1 GRAM 1 G in NS 100 ML IV 100 ML IV SCH (19:49)
[2022-01-07] MEDS: SNACK - Diabetic Appropriate PO SCH (20:15)
[2022-01-07] MEDS: BENADRYL CAP/TAB 25 MG PO PRN (21:12)
[2022-01-07] MEDS: LANTUS SC SCH (21:37)
[2022-01-08] MEDS: BENADRYL CAP/TAB 25 MG PO PRN (02:18)
--- NOTE | 2022-01-08 05:40 | RAD ---
HISTORYPOSSIBLE DC HX: HTN, COPD, DMSTUDYCHEST, 1 [id number] trachea is midline. The cardiac silhouette is unremarkable. The lungs are clear without focal infiltrate or effusion. The bony thorax is unremarkable.IMPRESSIONNo acute cardiopulmonary findings .Electronically signed by: Sander Estrella (Jan 08, 2022 05:39:35)
[2022-01-08 06:23] LABS: BASOPHILS # (AUTO) 0.1 X10^3/uL (0.0-0.1); BASOPHILS % (AUTO) 0.7 % (0.2-1.0); EOSINOPHILS % (AUTO) 0.4 % (0.9-2.9); HEMATOCRIT 39.3 % (36.0-47.0); LYMPHOCYTES # (AUTO) 3.8 X10^3/uL (1.3-2.9); LYMPHOCYTES % (AUTO) 29.9 % (21.0-51.0); MEAN CORPUSCULAR HEMOGLOBIN 27.9 pg (27.0-34.0); MEAN CORPUSCULAR VOLUME 84.6 fL (80.0-100.0); MEAN PLATELET VOLUME 9.5 fL (7.4-11.0); MONOCYTES # (AUTO) 0.9 x10^3/uL (0.3-0.8); NEUTROPHILS # (AUTO) 7.9 x10^3/uL (2.2-4.8); RED BLOOD COUNT 4.64 X10^6/uL (3.5-5.4); RED CELL DISTRIBUTION WIDTH 13.9 % (11.6-16.5); WHITE BLOOD COUNT 12.7 X10^3/uL (3.6-10.0)
[2022-01-08 06:28] LABS: ALBUMIN 3.2 g/dL (3.4-5.0); CALCIUM 8.6 mg/dL (8.5-10.1); COR CA(FOR HYPOALB) 9.2 mg/dL (8.5-10.1); CREATININE 1.94 mg/dL (0.55-1.02); TOTAL PROTEIN 7.7 g/dL (6.4-8.2)
[2022-01-08 06:49] LABS: ERYTHROCYTE SEDIMENTATION RATE 79 MM/HOUR (0-20)
[2022-01-08] MEDS ORDERED: COLCRYS TAB 0.6 MG PO ONE ×2 (09:00→10:30)
[2022-01-08] MEDS: ZYLOPRIM PO SCH (09:05)
[2022-01-08] MEDS: PROTONIX TAB 40 MG PO SCH (09:05)
[2022-01-08] MEDS: LOPRESSOR TAB 25 MG PO SCH (09:05)
[2022-01-08] MEDS: ROCEPHIN VIAL 1 GRAM 1 G in NS 100 ML IV 100 ML IV SCH (09:05)
[2022-01-08] MEDS: LOVENOX INJ 30 MG SYR SC SCH (09:06)
[2022-01-08] MEDS: LANTUS SC SCH (09:17)
[2022-01-08 12:01] VITALS: BP 161/74
[2022-01-10 12:03] LABS: ANTI-NUCLEAR ANTIBODY TEST Detected (None Detected)
== END 2022-01-08 12:48 | disposition home or self-care (01) ==
LOC: MED/SURG
PROVIDERS: ADMIT Internal Medicine; ATTEND Internal Medicine
DX: L03.116 Cellulitis of left lower limb; M79.672 Pain in left foot; M10.9 Gout, unspecified; R70.0 Elevated erythrocyte sedimentation rate; N17.8 Other acute kidney failure; I10 Essential (primary) hypertension; M15.8 Other polyosteoarthritis; N18.9 Chronic kidney disease, unspecified; J44.9 Chronic obstructive pulmonary disease, unspecified; L03.115 Cellulitis of right lower limb; E11.65 Type 2 diabetes mellitus with hyperglycemia